=== PATIENT | male | born 1970 | race Two or more races ===

== ENCOUNTER 2024-08-10 06:39 | Inpatient (IN) | payer MEDICAID, SELFPAY ==
[2024-08-10] VITALS (11 sets, daily range): BP systolic 122–161; BP diastolic 78–98; PULSE 69–93; RESP 15–96; TEMP 36.4–36.9; O2SAT 95–99
--- NOTE | 2024-08-10 06:49 | XR_ITS ---
Examination: Abdomen sonogram, Limited Date and time of exam: August 10, 2024 0800 hours INDICATIONS: Epigastric pain nausea vomiting onset today Technique: Real-time rose scale transabdominal sonographic images of the upper abdomen obtained. Findings: Normal gallbladder Normal common bile duct 0.3 cm Pancreatic head 2.9 cm Liver 14.2 cm fatty infiltration smooth contour no focal liver lesions Normal hepatopedal portal venous flow Patent IVC IMPRESSION: Normal gallbladder Fatty liver
--- NOTE | 2024-08-10 06:50 | PD.EDRME ---
Rapid Medical Screening Exam [facility] Arrival date/time: 08/10/24 06:39 54-year-old male with no known medical history presents to the emergency room with a chief complaint of nausea, vomiting, 10 out of 10 epigastric pain that radiates to the right upper quadrant x 1 day. Patient also states he is having right ear pain x 3 days. Patient denies any fever, URI symptoms, diarrhea. I have greeted and performed a focused initial assessment of this patient. A comprehensive ED assessment and evaluation of the patient, analysis of all test results, and completion of the medical decision making process will be conducted by additional ED providers. Chief Complaint: Abdominal Pain Time Seen by Provider: 08/10/24 06:43 Vital signs: Vital Signs Temperature 97.5 F 08/10/24 06:48 Pulse Rate 76 08/10/24 06:48 Respiratory Rate 18 08/10/24 06:48 Blood Pressure 155/93 H 08/10/24 06:48 Pulse Oximetry (%) 98 08/10/24 06:48 Oxygen Delivery Method Room Air 08/10/24 06:48 Vital signs reviewed by provider: Yes
[2024-08-10 07:26] LABS: Alanine Aminotransferase 43 U/L (10-49); Albumin, Serum 4.6 gm/dL (3.5-5.0); Albumin/Globulin Ratio 1.6 (1.2-2.2); Alkaline Phosphatase 97 U/L (46-116); Anion Gap 9 (7-16); Aspartate Amino Transferase 38 U/L (0-34); BUN/Creatinine Ratio 13 Ratio (12-20); Bilirubin,Total 1.5 mg/dL (0.3-1.2); Blood Urea Nitrogen 13 mg/dL (9-23); Calcium 9.4 mg/dL (8.3-10.6); Calcium (Corrected) 9.4 mg/dL (8.5-10.1); Carbon Dioxide 23.8 mMol/L (20.0-31.0); Chloride 105 mMol/L (98-107); Globulin 2.8 gm/dL (2.3-3.5); Glucose 177 mg/dL (74-106); Lipase 38 U/L (12-53); Osmolality,Calculated 279 (275-295); Sodium 138 mMol/L (136-145); Total Protein 7.4 gm/dL (5.7-8.2); eGFR > 60 See Note
[2024-08-10 07:28] LABS: Collection Type, Urine Clean Catch; Squamous Epithelial Cell,Urine 0 /hpf (0-5)
[2024-08-10 07:31] LABS: Bilirubin,Urine Negative (Negative); Blood,Urine Negative (Negative); Clarity,Urine Clear (Clear/Hazy); Color,Urine Lt-Yellow (Lt Yel-Yel); Glucose, Urine Negative (Negative); Ketones,Urine Negative (Negative); Leukocyte Esterase,Urine Negative (Negative); Nitrite,Urine Negative (Negative); PH,Urine 6.5 (5.0-7.0); Protein,Urine Negative (Neg - Trace); RBC,Urine < 1 /hpf (0-3); Specific Gravity,Urine 1.016 (1.001-1.035); Urobilinogen,Urine Negative mg/dL (0.0-1.0); WBC,Urine < 1 /hpf (0-5)
[2024-08-10] MEDS: ONDANSETRON ODT 4 MG TABRAP PO (07:31)
[2024-08-10 07:58] LABS: Basophils % (Auto) 0 % (0-2.5); Eosinophils # (Auto) 0.1 Thou/mm3 (0.0-0.5); Eosinophils % (Auto) 1 % (0-10); Hematocrit 36.6 % (41.0-53.0); Hemoglobin 13.7 g/dL (13.5-16.0); Immature Granulocytes % (Auto) 1 % (0-0); Immature Granulocytes Auto 0.07 Thou/mm3 (0.00-0.00); Lymphocytes # (Auto) 3.4 Thou/mm3 (1.0-4.8); Lymphocytes % (Auto) 35 % (10-50); Mean Corpuscular HGB Conc 37.4 g/dl (31.0-37.0); Mean Corpuscular Hemoglobin 31.6 pg (25.0-35.0); Mean Corpuscular Volume 84 fL (80-100); Monocytes # (Auto) 0.6 Thou/mm3 (0.0-0.8); Monocytes % (Auto) 6 % (0-12); Neutrophils # (Auto) 5.5 Thou/mm3 (1.8-7.7); Neutrophils % (Auto) 57 % (37-80); Nucleated Red Blood Cell % 0 /100 WBC (0); Platelet Count 239 Thou/mm3 (140-440); RDW Standard Deviation 38.1 fL (35.1-43.9); Red Blood Count 4.34 Miln/mm3 (4.50-5.90); White Blood Count 9.7 Thou/mm3 (3.8-10.6)
--- NOTE | 2024-08-10 09:30 | PD.EDABDPN ---
ED Abdominal Pain RME/HPI General Chief Complaint: Abdominal Pain Stated complaint: N/V, ABD PAIN,RIGHT EAR PAIN Time seen by provider: 08/10/24 06:43 Arrival date/time: 08/10/24 06:39 RME / HPI RME / HPI narrative: 08/10/24 06:39 54-year-old male with no known medical history presents to the emergency room with a chief complaint of nausea, vomiting, 10 out of 10 epigastric pain that radiates to the right upper quadrant x 1 day. Patient also states he is having right ear pain x 3 days. Patient denies any fever, URI symptoms, diarrhea. I have greeted and performed a focused initial assessment of this patient. A comprehensive ED assessment and evaluation of the patient, analysis of all test results, and completion of the medical decision making process will be conducted by additional ED providers. --------- Main ED Evaluation: Patient is a 54-year-old Turkish-speaking male with past medical history of hyperlipidemia and depression who presented to the ED on 08/10/2024 due to epigastric pain radiating to the mid lower abdomen beginning around 5 am this morning with associated nausea and non-bloody vomiting. Patient describes the pain as pressure-like and intermittent lasting 2-3 minutes at a time, rated 9/10 at its worst and 7/10 at best, and worsened with sitting and standing positions. Patient denies any prior similar episodes, denies history of surgeries. He denies any diarrhea and reports last bowel movement was today while in ER and non-bloody. Denies any dysuria or flank pain. Patient also has a complaint of right ear fullness and pain which started yesterday with hearing sounds of air in the ear. He has mild associated generalized headache which started today. MD complaint: abdominal pain Onset (ago): hour(s) Consistency: colicky Location: epigastric Severity: severe Severity scale (1-10): 9 Quality: other (pressure-like) Radiation: LLQ and RLQ Migration to: no migration Relieving factors: rest and other (laying down) Exacerbating factors: movement and other (sitting and standing) Associated symptoms: nausea and vomiting Related Data Home Medications ?Medication ?Instructions ?Recorded ?Confirmed Ardosons 1 tab PO QDAY 08/13/22 08/13/22 Held on 08/13/22. Instructions: Resume on 08/14/22. MAY RESUME IN 24 HOURS Sleep & Stress Support 1 cap PO HS 08/13/22 08/13/22 Held on 08/13/22. Instructions: Resume on 08/14/22. MAY RESUME IN 24 HOURS acetaminophen 650 mg 650 mg PO Q8HR PRN Pain 08/13/22 08/13/22 tablet,extended release (Tylenol 8 Hour) Held on 08/13/22. Instructions: Resume on 08/14/22. MAY RESUME IN 24 HOURS calcium carbonate 1,000 mg PO DAILY 08/13/22 08/13/22 multivitamin with minerals 1 tab PO QDAY 08/13/22 08/13/22 omega-3 fatty acids 1,000 mg PO QDAY 08/13/22 08/13/22 vitamin E 400 unit tablet 180 mg PO QDAY 08/13/22 08/13/22 Previous Rx's ?Medication ?Instructions ?Recorded famotidine 40 mg tablet 40 mg PO QDAY #30 tabs 08/10/24 meclizine 25 mg tablet 25 mg PO BID PRN dizziness #20 tabs 08/10/24 omeprazole 40 mg capsule,delayed 40 mg PO QDAY #30 caps 08/10/24 release ondansetron 4 mg disintegrating 4 mg PO TID PRN nausea and 08/10/24 tablet vomiting 5 days #10 tabs scopolamine base 1 mg over 3 days 1 mg topical .72 hour PRN 08/10/24 transdermal patch dizziness or vertigo #4 ea Allergies Allergy/AdvReac Type Severity Reaction Status Date / Time ibuprofen Allergy Mild Hives Verified 08/10/24 06:40 Past Medical History Past Medical History Comments PMH COMMENT: Past Medical History: Hyperlipidemia, depression Family History: Noncontributory Surgical History: No previous surgery Social History: Denies history of smoking, denies current alcohol use, denies recreational drug use Current Medications: Statin, anti-depressant, vitamins (Source: Patient) Allergies: Ibuprofen - hives ED Exam Narrative Physical exam: Physical Exam General: Awake and in no acute distress. Conversational and non-toxic appearing. HEENT: Normocephalic, atraumatic, mucous membranes moist. Normal clear right tympanic membrane without bulging, erythema, purulence, or cerumen impaction. Same for left ear. Heart: Regular rate and rhythm, no murmurs. Lungs: Clear to auscultation with no wheezing or crackles. Abdomen: Soft, nondistended, mild tenderness to palpation mid-epigastric region, positive bowel sounds. ?No guarding or rebound tenderness. Neurologic: Alert and oriented x3, no gross neurological deficit, and patient able to move all 4 extremities. Extremities: No edema. Skin: No rash or ecchymoses. Course Quality Measures none Orders Category Date Time Status CT Screening NOW Care 08/10/24 09:[address] Screening NOW Care 08/10/24 13:22 Completed EKG (ED ONLY) *Do not use* NOW Care 08/10/24 06:[address] abdomen pelvis w con Stat Exams 08/10/24 13:[address] head/brain wo con Stat Exams 08/10/24 13:22 Completed CXR [XR chest 1V] Stat Exams 08/10/24 10:07 Completed EKG (ED Only) Stat Exams 08/10/24 06:50 Ordered US gall bladder Stat Exams 08/10/24 06:49 Completed A1C [Glycohemoglobin w (eAG)] Stat Lab 08/10/24 10:23 Completed Alcohol, Blood Medical Stat Lab 08/10/24 13:37 Completed CBC Stat Lab 08/10/24 07:00 Completed CMP [Comprehensive Metabolic Panel] Stat Lab 08/10/24 07:00 Completed Lactic Acid [Lactate (Lactic Acid)] Stat Lab 08/10/24 10:23 Completed Lipase Stat Lab 08/10/24 07:00 Completed Magnesium Stat Lab 08/10/24 10:23 Completed Troponin I Stat Lab 08/10/24 10:23 Completed Troponin I Stat Lab 08/10/24 13:37 Completed UA [Urinalysis] Stat Lab 08/10/24 07:02 Completed Urine Culture Stat Lab 08/10/24 07:16 Received Lidocaine 2% Viscous [Xylocaine 2% Viscous] Med 08/10/24 10:30 Discontinued 15 ml PO X1 ONE Meclizine HCl [Antivert] Med 08/10/24 16:33 Discontinued 25 mg PO X1 ONE Metoclopramide Inj [Reglan Inj] Med 08/10/24 15:06 Discontinued 5 mg IVP X1 ONE Morphine Inj Med 08/10/24 09:28 Discontinued 2 mg IVP X1 ONE Morphine Inj Med 08/10/24 10:59 Discontinued 2 mg IVP X1 ONE Morphine Inj Med 08/10/24 18:12 Discontinued 2 mg IVP X1 ONE Ondansetron Odt [Zofran Odt] Med 08/10/24 06:49 Discontinued 4 mg PO X1 ONE Potassium Chloride [K-Dur] Med 08/10/24 12:22 Discontinued 40 meq PO X1 ONE Ringers Lactated 1000 ml [Lactated Ringers] 1,000 ml Med 08/10/24 15:39 Discontinued IV 999 mls/hr Scopolamine [Transderm-Scop Patch] Med 08/10/24 18:11 Discontinued 1 mg TOP X1 ONE mg Hyd/Al Hyd/Gilma Susp [Maalox Susp] Med 08/10/24 10:30 Discontinued 30 ml PO X1 ONE Vital Signs Vital signs: Vital Signs Temperature 97.5 F 08/10/24 06:48 Pulse Rate 76 08/10/24 06:48 Respiratory Rate 18 08/10/24 06:48 Blood Pressure 155/93 H 08/10/24 06:48 Pulse Oximetry (%) 98 08/10/24 06:48 Oxygen Delivery Method Room Air 08/10/24 06:48 Procedures -ED Procedure Comment Pinky-Hallpike 16:40 Assessment with [place]-Hallpike testing done and significantly positive for right-beating rotary nystagmus when the patient's head is turned 45 degrees and positioned from sitting to laying quickly. Kodi Maneuver 17:00 Kodi maneuver was performed by Dr. Patel with translation assistance by [employer]ACH[employer]PA[employer]. Patient's head was turned 45 degrees. Patient was transitioned quickly from a sitting to laying position. He exhibited the same nystagmus as above. He was kept in this position for approximately 45 seconds, until the nystagmus stopped. Patient's head was then turned 90 degrees to the left while still in the laying position. The head was kept in this position another 30 seconds until nystagmus beats stopped. Patient then was turned another 90 degrees leftward, now facing down while also turning his body such that he was now laying on left lateral decubitus. Patient was finally sat in the upright position on the left hand side of the bed. Patient exhibited nausea throughout the exam, including at the end. Towards the end of the maneuver nausea was still present but in lesser degree. EKG Interpretation #1: Date of EK08/10/24 Time of EK:51 Rate: 77 Interpretation: Interpreted by me EKG Impression: Normal sinus rhythm, No acute ST-T changes, Normal intervals and Normal axis Additional EKG comment: Normal EKG Abdominal Pain [facility] Narrative [facility] Narrative:: Patient presents with colicky-sounding mid upper abdominal pain radiating to the lower mid-abdomen, severe in nature and pressure-like, causing nausea and vomiting with sudden onset early this morning. Differential diagnoses include but may not be limited to cholelithiasis, cholecystitis, choledocholithiasis, pancreatitis, small bowel obstruction, mesenteric ischemia, gastrointestinal tumor, peptic ulcer disease, gastritis, gastroparesis, volvulus, infectious colitis, ischemic colitis, ACS, gastroenteritis, abdominal aortic aneurysm, constipation, diverticulitis, diverticulosis, appendicitis. US of the gallbladder was done which showed normal gallbladder, normal bile duct without evidence of cholelithiasis. On labs the patient's WBC was normal, and the only abnormality on chemistry was slightly elevated total bilirubin of 1.5, low potassium of 3.0 (possibly secondary to vomiting), and elevated glucose of 177. Vitals signs reviewed indicate no fever, normal heart rate, and slightly elevated BP at 155/93 likely secondary to pain. Will follow up with additional studies: CT angio of the abdomen/pelvis to evaluate for any of the above differentials including possible ischemic causes given the history of hyperlipidemia and nature of the patient's pain. CXR to evaluate for any underlying thoracic pathology. Troponin to rule out ACS. Lactic acid to evaluate for any ischemia. A1c due to elevated blood glucose of 177 on chemistry and no reported history of diabetes. On chem panel, anion gap is normal. After review of completed studies, patient was reassessed and it was found that patient was acutely symptomatic with dizziness, nausea, and vomiting on positional changes. Therefore Pinky-Hallpike was performed and remarkably positive. Kodi maneuver was performed on the patient. He was treated with meclizine and IV fluids. Patient is pending clinical improvement. 18:00 Care of the patient signed out to the oncoming provider, Dr. Cox. Dispo is pending clinical improvment. Patient data External records reviewed:: [facility] previous records Clinical information provided by:: patient Social determinants that could affect healthcare access:: none Patient has the following chronic illnesses:: As above How is presenting disease/condition affected by chronic disease/condition?: uneffected by Evaluation data The following diagnostics were reviewed and interpreted by me:: lab results, radiology exam(s) and EKG tracing(s) Lab and/or radiology exams considered but not ordered:: Ordered Interpretation Summary: US gall bladder Findings: Normal gallbladder Normal common bile duct 0.3 cm Pancreatic head 2.9 cm Liver 14.2 cm fatty infiltration smooth contour no focal liver lesions Normal hepatopedal portal venous flow Patent IVC IMPRESSION: Normal gallbladder Fatty liver Chest X-Ray FINDINGS: Normal heart size Lungs are clear. The osseous structures are intact IMPRESSION: No active disease CT abdomen with intravenous contrast Findings: No focal liver or splenic lesions Contrast in the stomach Contracted gallbladder No pancreatic or adrenal mass No renal or ureteral calculi, no hydronephrosis Aorta normal size Normal appendix No bowel obstruction Mild diffuse wall thickening and hyperemia involving the colon Mildly prominent seminal vesicles Transverse prostate dimension 4.6 cm Urinary bladder wall thickening up to 3 mm Moderate degenerative disc disease L4-L5, L5-S1 IMPRESSION: Mild diffuse nonspecific colitis pattern Normal appendix Moderate prostatomegaly Mild cystitis pattern CT head without contrast Findings: No significant ventricular enlargement. Fat density adjacent to the quadrigeminal cistern Intra-axial or extra-axial hemorrhage density is not seen. No mass effect or midline shift Basal cisterns are not remarkable. Fourth ventricle is midline. Cranial vault intact. Impression: Negative for acute hemorrhage, mass effect or midline shift Advise clinical correlation follow-up accordingly Medications / Prescriptions Medications or Prescriptions considered but not ordered:: Given Medication administrations:: Medication Administration History Discontinued Medications Al Hydrox/Mg Hydrox/Simethicone (Mg Hyd/Al Hyd/Gilma (Maalox Reg) Susp 30 Ml Udc) 30 ml PO X1 ONE Stop: 08/10/24 10:31 Last Admin: 08/10/24 11:39 Dose: 30 ml Documented By: RIVER Lactated Ringer's (Lactated Ringers) 1,000 mls @ 999 mls/hr IV .Q1H1M ONE Stop: 08/10/24 16:39 Last Infusion: 08/10/24 18:00 Dose: Infused Documented By: Admin: 08/10/24 16:54 Dose: 999 mls/hr Documented By: RIVER Lidocaine HCl (Lidocaine Viscous 2% 15 Ml Udc) 15 ml PO X1 ONE Stop: 08/10/24 10:31 Last Admin: 08/10/24 11:39 Dose: 15 ml Documented By: RIVER Meclizine HCl (Meclizine Hcl 25 Mg Tablet) 25 mg PO X1 ONE Stop: 08/10/24 16:34 Last Admin: 08/10/24 16:53 Dose: 25 mg Documented By: RIVER Metoclopramide HCl (Metoclopramide Inj 5 Mg/Ml Vial 2 Ml) 5 mg IVP X1 ONE; Protocol Stop: 08/10/24 15:07 Last Admin: 08/10/24 16:56 Dose: 5 mg Documented By: RIVER Morphine Sulfate (Morphine Sulf Inj 10 Mg/Ml Vial) 2 mg IVP X1 ONE Stop: 08/10/24 09:29 Last Admin: 08/10/24 10:08 Dose: 2 mg Documented By: RIVER Morphine Sulfate (Morphine Sulf Inj 10 Mg/Ml Vial) 2 mg IVP X1 ONE Stop: 08/10/24 11:00 Last Admin: 08/10/24 11:39 Dose: 2 mg Documented By: RIVER Morphine Sulfate (Morphine Sulf Inj 10 Mg/Ml Vial) 2 mg IVP X1 ONE Stop: 08/10/24 18:13 Last Admin: 08/10/24 18:17 Dose: 2 mg Documented By: GLORIA Ondansetron HCl (Ondansetron Odt 4 Mg Tabrap) 4 mg PO X1 ONE; Protocol Stop: 08/10/24 06:50 Last Admin: 08/10/24 07:31 Dose: 4 mg Documented By: ABIMAEL Potassium Chloride (Potassium Chloride 20 Meq Tabcr) 40 meq PO X1 ONE Stop: 08/10/24 12:23 Last Admin: 08/10/24 14:00 Dose: 40 meq Documented By: RIVER Scopolamine (Scopolamine 1 Mg Tdsy) 1 mg TOP X1 ONE Stop: 08/10/24 18:12 Last Admin: 08/10/24 18:18 Dose: 1 mg Documented By: SF Given Consultations Consultation(s) initiated? (list below): No Diagnosis Differential diagnosis abdominal pain: abdominal pain, acute appendicitis, calculus of kidney, constipation, diverticulitis, gastroenteritis, pancreatitis and small bowel obstruction Most likely diagnosis given after review of the tests above:: Benign positional vertigo Admission Indicated Admission indicated?: not indicated Admission Request Was there a request for admission?: No Disposition Plan Disposition Plan: Discharge Discharge Attestation Discharge Attestation: The patient and all family members were given an opportunity to ask questions and understood the discharge instructions. Discharge instructions specifically effects, indications for sooner follow up or return to the emergency department, and the expected course of current diagnosis. Patient condition: Stable Discharge Plan Plan Patient Disposition: HOME (Self Care) Prescriptions/Referrals Prescriptions/Med Rec: New famotidine 40 mg tablet 40 mg PO QDAY Qty: 30 0RF omeprazole 40 mg capsule,delayed release(DR/EC) 40 mg PO QDAY Qty: 30 0RF meclizine 25 mg tablet 25 mg PO BID PRN (Reason: dizziness) Qty: 20 0RF scopolamine base 1 mg over 3 days patch 3 day 1 mg topical .72 hour PRN (Reason: dizziness or vertigo) Qty: 4 0RF ondansetron 4 mg tablet,disintegrating 4 mg PO TID PRN (Reason: nausea and vomiting) 5 Days Qty: 10 0RF No Action acetaminophen [Tylenol 8 Hour] 650 mg Tablet Extended Release 650 mg PO Q8HR PRN (Reason: Pain) vitamin E 400 unit Tablet 180 mg PO QDAY omega-3 fatty acids Capsule 1,000 mg PO QDAY calcium carbonate 390 mg calcium (1,000 mg) Tablet 1,000 mg PO DAILY Ardosons 1 tab PO QDAY Sleep & Stress Support 1 cap PO HS multivitamin with minerals Tablet 1 tab PO QDAY Referrals: No Primary/Family,Physician [Primary Care Provider] - In 1 week Problem List Clinical Impression: Benign paroxysmal positional vertigo Patient/Caregiver Discharge Instructions Print Language: Turkish Stand Alone Forms: [facility] Award Info., Patient Portal Info Letter
--- NOTE | 2024-08-10 10:07 | XR_ITS ---
Examination: AP chest single view TECHNIQUE: AP portable upright chest single view Exam date and time: June 09, 2025 1011 hours INDICATIONS: Epigastric pain today. FINDINGS: Normal heart size Lungs are clear. The osseous structures are intact IMPRESSION: No active disease
[2024-08-10] MEDS: MORPHINE SULF INJ 10 MG/ML VIAL 2 MG IVP ×3 (10:08→18:17)
[2024-08-10 10:35] LABS: Lactate (Lactic Acid) 1.7 mMol/L (0.4-2.0)
[2024-08-10 10:47] LABS: Glucose Estimated Average 103 mg/dL (80-131); Hemoglobin A1C 5.2 % Hgb (4.8-6.0)
[2024-08-10 10:51] LABS: Troponin I < 0.002 ng/mL (0.0-0.045)
[2024-08-10] MEDS: MG HYD/AL HYD/SIME (Maalox Reg) SUSP 30 ML UDC PO (11:39)
[2024-08-10] MEDS: LIDOCAINE VISCOUS 2% 15 ML UDC PO (11:39)
--- NOTE | 2024-08-10 13:22 | XR_ITS ---
Examination: CT abdomen with intravenous contrast CT pelvis with intravenous contrast 2-D coronal reconstructions 2-D sagittal reconstructions Date and time of exam:August 10, 2024 1430 hours INDICATIONS: Epigastric pain nausea vomiting today. CTDI: vol (mGy) 14 DLP: (mGycm) 851 Technique: Multiple axial sections of the abdomen and pelvis have been obtained. 64 slice high-resolution scanner used. 3 mm axial sections have been obtained, post intravenous injection 60 cc [id number]. 2-D sagittal, coronal reconstructions obtained. Low dose protocols were performed. One or more of the following dose reduction techniques were used; automated exposure control, adjustment of the mA and/or KV according to patient size, use of iterative reconstruction technique. Findings: No focal liver or splenic lesions Contrast in the stomach Contracted gallbladder No pancreatic or adrenal mass No renal or ureteral calculi, no hydronephrosis Aorta normal size Normal appendix No bowel obstruction Mild diffuse wall thickening and hyperemia involving the colon Mildly prominent seminal vesicles Transverse prostate dimension 4.6 cm Urinary bladder wall thickening up to 3 mm Moderate degenerative disc disease L4-L5, L5-S1 IMPRESSION: Mild diffuse nonspecific colitis pattern Normal appendix Moderate prostatomegaly Mild cystitis pattern
--- NOTE | 2024-08-10 13:22 | XR_ITS ---
Examination: CT brain head without contrast. 2-D sagittal coronal reconstructions Date and time of exam:August 10, 2024 1425 hours INDICATIONS: Onset dizziness episodes today CTDI: vol (mGy):50.6 DLP: (mGycm):1029 Technique: Multiple CT axial sections of the brain have been obtained, 5 mm slice thickness. Contrast has not been administered. 2-D sagittal, coronal reconstructions have been obtained Low dose protocols were performed. One or more of the following dose reduction techniques were used; automated exposure control, adjustment of the mA and/or KV according to patient size, use of iterative reconstruction technique. Findings: No significant ventricular enlargement. Fat density adjacent to the quadrigeminal cistern Intra-axial or extra-axial hemorrhage density is not seen. No mass effect or midline shift Basal cisterns are not remarkable. Fourth ventricle is midline. Cranial vault intact. Impression: Negative for acute hemorrhage, mass effect or midline shift Advise clinical correlation follow-up accordingly
[2024-08-10] MEDS: POTASSIUM CHLORIDE 20 mEq TABCR 40 MEQ PO (14:00)
[2024-08-10 14:21] LABS: Troponin I < 0.002 ng/mL (0.0-0.045)
[2024-08-10] MEDS: MECLIZINE HCL 25 MG TABLET PO (16:53)
[2024-08-10] MEDS: RINGERS LACTATED 1000 ML 1,000 ML 999 ML IV (16:54)
[2024-08-10] MEDS: METOCLOPRAMIDE INJ 5 MG/ML VIAL 2 ML IVP (16:56)
[2024-08-10 17:01] LABS: Magnesium 1.8 mg/dL (1.6-2.6)
[2024-08-10 17:54] LABS: Alcohol, Blood Medical < 3.0 mg/dL (0-10.0)
--- NOTE | 2024-08-10 17:58 | EDNOTE_ITS ---
Emergency Room Addendum <Esha Hurst - Last Filed: 08/10/24 19:01> Addendum Narrative: I took over the care from Dr. Patel (attending Dr. Garcia) at 6 PM on 08/10/2024, see her notes for complete H&P and ED course. I reviewed all diagnostic test results. My interpretation of the chest x-ray is My review of the CT report is Blood tests and urine tests At this point, diagnoses include Treatment here included Significant improvement Based on my best medical judgment, made decision no further evaluation or treatment indicated at this time. Patient understands and agrees to the discharge instructions customized and printed, see below. Discharge instructions from Dr. Cox: -- Your severe symptoms of dizziness and vomiting are due to vertigo.? See attached handout. -- Use scopolamine patch and/or meclizine for your severe symptoms. -- And Zofran for nausea/vomiting.? And increase oral fluid to prevent dehydration.? Maintain clear urine.? If dark or yellow, increase oral fluid. -- And do everything very slowly.? Including moving your head.? And when you sit up or stand up, wait a minute before you progress.? -- For your stomach ulcer, take omeprazole every morning for a week and famotidine every night for a week then as needed. -- See your private doctor on 08/12/2024 for recheck and further care. To make sure there is no serious intra-abdominal condition, ask for help with more investigation not available here in the ER. Such as EGD or scoping the stomach, colonoscopy or scoping the colon, and referral to see department of mathematics chair. For your severe dizziness, ask for help with MRI imaging of your brain, physical therapy, table tilt test, and referrals to see specialists (such as neurologist and ENT specialist). Ask to review all test results and official radiology reports, to make sure you receive all necessary follow-ups and monitoring. -- Seek immediate medical care with worsening or with any concerns. <Robert Cox MD - Last Filed: 08/10/24 19:03> Addendum Narrative: I took over the care from Dr. Patel (attending Dr. Garcia) at 6 PM on 08/10/2024, see her notes for complete H&P and ED course. I reviewed all diagnostic test results. At this point, diagnoses include vertigo and gastritis. Significant improvement after treatment here. Recommended supportive care and more outpatient workup. Based on my best medical judgment, made decision no further evaluation or treatment indicated at this time. Patient understands and agrees to the discharge instructions customized and printed, see below. Discharge instructions from Dr. Cox: -- Your severe symptoms of dizziness and vomiting are due to vertigo.? See attached handout. -- Use scopolamine patch and/or meclizine for your severe symptoms. -- And Zofran for nausea/vomiting.? And increase oral fluid to prevent dehydration.? Maintain clear urine.? If dark or yellow, increase oral fluid. -- And do everything very slowly.? Including moving your head.? And when you sit up or stand up, wait a minute before you progress.? -- For your stomach ulcer, take omeprazole every morning for a week and famotidine every night for a week then as needed. -- See your private doctor on 08/12/2024 for recheck and further care. To make sure there is no serious intra-abdominal condition, ask for help with more investigation not available here in the ER. Such as EGD or scoping the stomach, colonoscopy or scoping the colon, and referral to see department of mathematics chair. For your severe dizziness, ask for help with MRI imaging of your brain, physical therapy, table tilt test, and referrals to see specialists (such as neurologist and ENT specialist). Ask to review all test results and official radiology reports, to make sure you receive all necessary follow-ups and monitoring. -- Seek immediate medical care with worsening or with any concerns.
[2024-08-10] MEDS: SCOPOLAMINE 1 MG TDSY TOP (18:18)
--- NOTE | 2024-08-10 20:44 | XR_ITS ---
Examination: CTA carotids with intravenous contrast CTA brain, head with intravenous contrast. 2-D sagittal, coronal reconstructions. 3-D reconstructions. Exam: July and time: August 10, 2024 2108 hrs. Indications: Nausea vomiting and ataxia dizziness today CTDI: vol (mGy) 10.9 DLP: (mGycm) 408 Technique: Multiple CTA axial brain, head carotid images post intravenous contrast injection 75 cc, [id number]. 2-D sagittal, coronal reconstructions. 3-D reconstructions, 3-D post processing including vascular maximum intensity projection images. Low dose protocols were performed. One or more of the following dose reduction techniques were used; automated exposure control, adjustment of the mA and/or KV according to patient size, use of iterative reconstruction technique. Findings: No common carotid carotid bifurcation or internal carotid artery significant stenoses Codominant vertebral arteries with no critical stenoses No cerebral large vessel arterial occlusions, thrombus, dissection or cerebral aneurysm Impression: No significant neck arterial stenoses No cerebral large vessel arterial occlusions, thrombus, dissection or cerebral aneurysm Consider brain MRI MRA without contrast, stroke protocol, follow-up
--- NOTE | 2024-08-10 20:57 | XR_ITS ---
Examination: CT brain head without contrast. 2-D sagittal coronal reconstructions Date and time of exam:August 10, 2024 at 2106 hrs. Indications: Head pain year pain dizziness today CTDI: vol (mGy):48.9 DLP: (mGycm):970 Technique: Multiple CT axial sections of the brain have been obtained, 5 mm slice thickness. Contrast has not been administered. 2-D sagittal, coronal reconstructions have been obtained Low dose protocols were performed. One or more of the following dose reduction techniques were used; automated exposure control, adjustment of the mA and/or KV according to patient size, use of iterative reconstruction technique. Findings: No significant ventricular enlargement. Intra-axial or extra-axial hemorrhage density is not seen. No mass effect or midline shift Basal cisterns are not remarkable. Fourth ventricle is midline. Cranial vault intact. Impression: Negative for acute hemorrhage, mass effect or midline shift If symptoms persist, consider elective brain MRI follow-up
--- NOTE | 2024-08-10 21:00 | PC.NURSE ---
[facility] CASE # [id number]
[2024-08-10 21:20] LABS: INR 1.1 (0.9-1.3); Partial Thromboplastin Time 26.1 Seconds (22.0-36.0); Prothrombin Time 11.8 Seconds (9.0-12.2)
--- NOTE | 2024-08-10 21:50 | ESCONSULT_ITS ---
Tele Neuro Consultation Consultation Date 08/10/24 Most Recent Vital Signs Last Vital Signs Temp 907.6 F H 08/10/24 20:00 Pulse 93 08/10/24 20:00 Resp 18 08/10/24 20:00 BP 156/89 H 08/10/24 20:00 Pulse Ox 98 08/10/24 20:00 O2 Del Method Room Air 08/10/24 20:00 Laboratory-Coagulation Panel PT 11.8 Seconds (9.0-12.2) 08/10/24 20:54 INR 1.1 (0.9-1.3) 08/10/24 20:54 APTT 26.1 Seconds (22.0-36.0) 08/10/24 20:54 Consultation Narrative [facility] Patient Name:???Abel Dutton Date of :???1970 Identification Number:??? Date of Service:???08/10/2024 20:59:43 Diagnosis: ?R42 - Dizziness/ Vertigo/ Giddiness ?R26.81 - Unsteady gait Impression: ?54 yo M who presented for evaluation of positional vertigo with associated nausea/vomiting and unsteady gait. His neurologic exam was notable for right facial hypoesthesia and unsteady gait but otherwise grossly non-focal. Overall, his presentation is most concerning for a peripheral vertigo (particularly given concurrent right ear discomfort/tinnitus), though presence of possible right facial sensory changes does increase suspicion for possible acute stroke. He is not a candidate for thrombolytics as LKW >4.5 hours, and there is no evidence of proximal LVO on my review of the vessel imaging. Recommend empiric initiation of ASA and MRI brain without contrast for further evaluation. Our recommendations are outlined below. Recommendations: ?Please load with ASA 325 mg followed by 81 mg daily thereafter pending review of MRI ?May give meclizine and antiemetics PRN for symptomatic improvement; if symptoms remain refractory/intolerable, may also trial low-dose benzodiazepine for additional relief ?MRI brain without contrast to evaluate for acute stroke ?If MRI brain is positive for acute stroke, will recommend completion of stroke workup (including TTE, telemetry, stroke labs) ?If MRI brain is negative for acute stroke, no further neurologic studies will be necessary ?Patient would otherwise benefit from PT evaluation for vestibular rehab if dizziness persists Sign Out: ? Discussed with Emergency Department Provider Advanced Imaging: CTA Head and Neck Completed. LVO:No Patient in not a candidate for MARY Metrics: Last Known Well: 08/09/2024 23:00:00 Dispatch Time: 08/10/2024 20:59:43 Arrival Time: 08/10/2024 06:39:00 Initial Response Time: 08/10/2024 21:07:27Symptoms: dizziness and unsteady gait. Initial patient interaction: 08/10/2024 21:20:09 NIHSS Assessment Completed: 08/10/2024 21:28:19Patient is not a candidate for Thrombolytic. Thrombolytic Medical Decision: 08/10/2024 21:28:22Patient was not deemed candidate for Thrombolytic because of following reasons: LKW outside 4.5 hr window. . I personally Reviewed the CT Head and it Showed no acute process Primary Provider Notified of Diagnostic Impression and Management Plan on: 08/10/2024 21:47:15 History of Present Illness:Patient is a 54 year old Male. Patient was brought by private transportation with symptoms of dizziness and unsteady gait. Patient reports that he was last known normal around 11 PM on 2/11 prior to going to bed. He awoke around 5:30 AM on the morning of 08/10 and reported acute onset of dizziness (described as a spinning sensation) with associated nausea/vomiting and unsteady gait. He also reported mild abdominal discomfort as well as blurry vision in both eyes. The dizziness is worse while ambulating. While in the ED, he also started to complain of right ear pain with associated tinnitus. He denied any history of similar symptoms in the past and further denied any associated headache, speech changes, or focal numbness/weakness. Though he was initially going to be discharged, his gait was noted to be unsteady in the ED, prompting a stroke alert. Past Medical History: ?Hyperlipidemia ?There is no history of Stroke Medications: No Anticoagulant use? No Antiplatelet use Reviewed EMR for current medications Allergies:? Reviewed Description:?ibuprofen Social History: Smoking: No Family History: There is no family history of premature cerebrovascular disease pertinent to this consultation ROS : 14 Points Review of Systems was performed and was negative except mentioned in HPI. Past Surgical History: There Is No Surgical History Contributory To Today?s Visit Examination: BP(156/89),?Pulse(93), 1A: Level of Consciousness - Alert; keenly responsive?+ 0 1B: Ask Month and Age - Both Questions Right?+ 0 1C: Blink Eyes & Squeeze Hands - Performs Both Tasks?+ 0 2: Test Horizontal Extraocular Movements - Normal?+ 0 3: Test Visual Dickson - No Visual Loss?+ 0 4: Test Facial Palsy (Use Grimace if Obtunded) - Normal symmetry?+ 0 5A: Test Left Arm Motor Drift - No Drift for 10 Seconds?+ 0 5B: Test Right Arm Motor Drift - No Drift for 10 Seconds?+ 0 6A: Test Left Leg Motor Drift - No Drift for 5 Seconds?+ 0 6B: Test Right Leg Motor Drift - No Drift for 5 Seconds?+ 0 7: Test Limb Ataxia (FNF/Heel-Landry) - No Ataxia?+ 0 8: Test Sensation - Mild-Moderate Loss: Less Sharp/More Dull?+ 1 9: Test Language/Aphasia - Normal; No aphasia?+ 0 10: Test Dysarthria - Normal?+ 0 11: Test Extinction/Inattention - No abnormality?+ 0 NIHSS Score:?1 NIHSS Free Text :?Right facial hypoesthesia; unsteady gait per ED staff Pre-Morbid Modified Holbrook Scale:0 Points = No symptoms at all Spoke with :?Dr. Cox This consult was conducted in real time using interactive audio and video technology. Patient was informed of the technology being used for this visit and agreed to proceed. Patient located in hospital and provider located at home/office setting. Patient is being evaluated for possible acute neurologic impairment and high probability of imminent or life-threatening deterioration. I spent total of 35 minutes providing care to this patient, including time for face to face visit via telemedicine, review of medical records, imaging studies and discussion of findings with providers, the patient and/or family. Dr Humberto Godwin [facility] For Inpatient follow-up with [facility] physician please call [facility] at . As we are not an outpatient service for any post hospital discharge needs please contact the hospital for assistance. If you have any questions for the [facility] physicians or need to reconsult for clinical or diagnostic changes please contact us via [facility] at .
--- NOTE | 2024-08-10 21:54 | PD.EDADDENDU ---
Emergency Room Addendum <Esha Hurst - Last Filed: 08/10/24 21:57> Addendum Narrative: As the patient was about to be discharged, the nurses observed him to have difficulty with his balance. Stroke alert was called overhead at 2143: Discussed case with [Dr. Godwin] from [facility] regarding consultation. Discussed patients ED course, exam findings, labs, and radiology results. Recommends MRI in the morning. I discussed the case with our hospitalist. About the presentation and exam and diagnostics and treatments here. And need of further care in the hospital. Will accept the patient. <Robert Cox MD - Last Filed: 08/10/24 21:58> Addendum Narrative: As the patient was about to be discharged, the nurses observed him to have difficulty with his balance. Stroke alert was called overhead at 2143: Discussed case with [Dr. Godwin] from [facility] regarding consultation. Discussed patients ED course, exam findings, labs, and radiology results. Recommends admission for further workup, including MRI. Gastroenteritis 25 mg given. I discussed the case with our hospitalist. About the presentation and exam and diagnostics and treatments here. And need of further care in the hospital. Will accept the patient. Robert Cox MD
[2024-08-10] MEDS: METOCLOPRAMIDE INJ 5 MG/ML VIAL 2 ML 10 MG IVP (22:23)
[2024-08-10] MEDS: ONDANSETRON INJ 2 MG/ML INJ 2 ML 4 MG IV (22:23)
[2024-08-10] MEDS: Aspirin 325 MG TABLET PO (22:23)
[2024-08-10] MEDS: ACETAMINOPHEN w/COD 300-30 TABLET 2 TAB PO (22:23)
[2024-08-10] MEDS: SODIUM CHLORIDE 0.9% 1000 ML 1,000 ML 100 ML IV (22:24)
--- NOTE | 2024-08-10 22:51 | ESHP_ITS ---
Documentation for date of: 08/10/24 HPI History of Present Illness Chief complaint: Dizziness, nausea vomiting and ear pain History of present illness: Mr. Dutton is a 54-year-old male with past medical history of hyperlipidemia and depression who presented to [facility] emergency department on 08/10/2024 with a chief complaint of dizziness, nausea and unsteady gait. 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 Patient reported no prior history of similar episodes, presented to the ED for further evaluation. Patient complained of pressure-like abdominal pain intermittent lasting for 2 to 3 minutes at a time 9/10 in intensity, patient attributes his symptoms to his dizziness and right ear pain which started in the morning as well. On evaluation in ED patient was noted to have unsteady gait. Stroke alert called in the ED. ED Course: ED Vitals: On presentation BP 155/93, P 76, RR 18, temp 97.5, O2 sat 98 on room air ED Labs:On presentation RBC 4.34, hematocrit 36.6, MCHC 37.4, potassium 3.0, glucose 177, T. bili 1.5, AST 38 ED Imaging: Gallbladder ultrasound in ED shows normal gallbladder fatty liver, chest x-ray shows no active disease, CT abdomen pelvis shows mild nonspecific colitis, moderate prostatomegaly and mild cystitis head CT negative CTA head and neck negative repeat CT head negative ED Treatment: Patient was given Zofran 4mg X2, Morphine 2mg X3, Maalox X1, PO Lidocaine x1, Potassium 40mEq x1, Reglan 10mg x 1, Reglan 5 mg x 1, Meclizine PO x1, Scopolamine X1 and Acetaminophen-Codiene 2 tabs x1, Aspirin 325 x1 in ED. Review of Systems Review of Systems Narrative Review of Systems: ROS: -CONSTITUTIONAL: Denies weight loss, fever and chills. -HEENT: Denies changes in vision. Reports decreased hearing in right ear, complains of ear pain. -RESPIRATORY: Denies SOB and cough. -CV: Denies palpitations and Chest Pain. -GI: Positive for abdominal pain, nausea, vomiting, denies constipation and diarrhea. -: Denies dysuria and urinary frequency. -MSK: Denies myalgia and joint pain. -SKIN: Denies rash and pruritus. -NEUROLOGICAL: Denies headache and syncope. Positive for unsteady gait. Positive for dizziness -PSYCHIATRIC: Denies recent changes in mood. Denies anxiety and depression. Past Medical History Past Medical History Comments PMH COMMENT: PMH: Positive for atorvastatin and duloxetine PSHx: Denies Allergies: Ibuprofen?hives Social history: -Smoking: Denies -Alcohol Use: Denies -Illicit Drug Use: Denies -Occupation: Currently unemployed -Martial Status: Family History: Denies any pertinent family history Exam Vital Signs Temp Pulse Resp BP Pulse Ox O2 Del Method 98.4 F 76 18 144/86 H 95 Room Air 08/10/24 22:33 08/10/24 22:50 08/10/24 22:50 08/10/24 22:33 08/10/24 22:33 08/10/24 22:33 Narrative Exam Physical Exam General: Awake and in no acute distress. Conversational and non-toxic appearing. Complaining of active nausea, dry heaving. HEENT: Normocephalic, atraumatic, mucous membranes moist. Heart: Regular rate and rhythm, no murmurs. Lungs: Clear to auscultation with no wheezing or crackles. Abdomen: Soft, nondistended, mildly tender in all quadrants, positive bowel sounds. ?No guarding or rebound tenderness. Neurologic: Alert and oriented x3, no gross neurological deficit, and patient able to move all 4 extremities, strength intact in all 4 extremities. Extremities: No edema. Skin: No rash or ecchymoses. Results: Labs 08/11/24 04:31 08/11/24 04:31 Labs: Short CBC 08/10/24 Range/Units 07:00 WBC 9.7 (3.8-10.6) Thou/mm3 Hgb 13.7 (13.5-16.0) g/dL Hct 36.6 L (41.0-53.0) % Plt Count 239 (140-440) Thou/mm3 BMP 08/10/24 07:00 Sodium 138 Potassium 3.0 L Chloride 105 Carbon Dioxide 23.8 BUN 13 Creatinine 1.0 Glucose 177 H Calcium 9.4 Cardiac Enzymes 08/10/24 08/10/24 Range/Units 10:23 13:37 Troponin I < 0.002 < 0.002 (0.0-0.045) ng/mL Liver Function 08/10/24 Range/Units 07:00 Total Bilirubin 1.5 H (0.3-1.2) mg/dL AST 38 H (0-34) U/L ALT 43 (10-49) U/L Alkaline Phosphatase 97 (46-116) U/L Albumin 4.6 (3.5-5.0) gm/dL Urine 08/10/24 Range/Units 07:02 Urine Color Lt-Yellow (Lt Yel-Yel) Urine Clarity Clear (Clear/Hazy) Urine pH 6.5 (5.0-7.0) Ur Specific [place] 1.016 (1.001-1.035) Urine Protein Negative (Neg - Trace) Urine Glucose (UA) Negative (Negative) Quality Measures Quality Measures none Medications Home Medications and Allergies Home Medications ?Medication ?Instructions ?Recorded ?Confirmed ?Type Ardosons 1 tab PO QDAY 08/13/2208/13 History Held on 08/13/22. Instructions: Resume on 08/14/22. MAY RESUME IN 24 HOURS Sleep & Stress Support 1 cap PO HS 08/13/22 3 History Held on 08/13/22. Instructions: Resume on 08/14/22. MAY RESUME IN 24 HOURS acetaminophen 650 mg 650 mg PO Q8HR PRN Pain 07/3008/13/22 History tablet,extended release (Tylenol 8 Hour) Held on 08/13/22. Instructions: Resume on 08/14/22. MAY RESUME IN 24 HOURS calcium carbonate 1,000 mg PO DAILY 08/13/22 0 08/13/22 History multivitamin with minerals 1 tab PO QDAY 08/13/2207/30 History omega-3 fatty acids 1,000 mg PO QDAY 08/13/22 History vitamin E 400 unit tablet 180 mg PO QDAY 08/13/2207/30 History Allergies Allergy/AdvReac Type Severity Reaction Status Date / Time ibuprofen Allergy Mild Hives Verified 08/10/24 06:40 Visit Medications Acetaminophen (Acetaminophen 325 Mg Tablet) 650 mg PO Q6H PRN PRN Reason: Mild Pain (1-3 & Fever >101.5 Stop: 09/09/24 22:25 Al Hydrox/Mg Hydrox/Simethicone (Mg Hyd/Al Hyd/Gilma (Maalox Reg) Susp 30 Ml Udc) 30 ml PO Q6H PRN PRN Reason: Indigestion Stop: 09/09/24 22:25 Aspirin (Aspirin Ec 81 Mg Tabec) 81 mg PO QDAY REPLACED BY [facility] Stop: 09/10/24 08:59 Atorvastatin Calcium (Atorvastatin Calcium 20 Mg Tablet) 40 mg PO HS LINDSAY Stop: 09/10/24 20:59 Heparin Sodium (Porcine) (Heparin Sod Inj 5000 Unit/Ml Vial) 5,000 unit SC Q12H LINDSAY Stop: 08/25/24 08:59 Sodium Chloride (Ns) 1,000 mls @ 100 mls/hr IV Q10H LINDSAY Stop: 09/09/24 20:44 Last Admin: 08/10/24 22:24 Dose: 100 mls/hr Lactated Ringer's (Lactated Ringers) 1,000 mls @ 75 mls/hr IV .[id number] REPLACED BY [facility] Stop: 08/11/24 11:49 Pantoprazole Sodium (Pantoprazole Inj 40 Mg Vial) 40 mg IVP QDAY REPLACED BY [facility] Stop: 09/10/24 08:59 Sennosides (Senna Tablet) 1 tab PO QDAY PRN; Protocol PRN Reason: constipation Stop: 09/09/24 22:25 Discontinued Medications Acetaminophen/Codeine Phosphate (Acetaminophen W/Cod 300-30 Tablet) 2 tab PO X1 ONE Stop: 08/10/24 20:32 Last Admin: 08/10/24 22:23 Dose: 2 tab Al Hydrox/Mg Hydrox/Simethicone (Mg Hyd/Al Hyd/Gilma (Maalox Reg) Susp 30 Ml Udc) 30 ml PO X1 ONE Stop: 08/10/24 10:31 Last Admin: 08/10/24 11:39 Dose: 30 ml Aspirin (Aspirin 325 Mg Tablet) 325 mg PO X1 ONE Stop: 08/10/24 21:46 Last Admin: 08/10/24 22:23 Dose: 325 mg Lactated Ringer's (Lactated Ringers) 1,000 mls @ 999 mls/hr IV .Q1H1M ONE Stop: 08/10/24 16:39 Last Infusion: 08/10/24 18:00 Dose: Infused Lidocaine HCl (Lidocaine Viscous 2% 15 Ml Udc) 15 ml PO X1 ONE Stop: 08/10/24 10:31 Last Admin: 08/10/24 11:39 Dose: 15 ml Meclizine HCl (Meclizine Hcl 25 Mg Tablet) 25 mg PO X1 ONE Stop: 08/10/24 16:34 Last Admin: 08/10/24 16:53 Dose: 25 mg Metoclopramide HCl (Metoclopramide Inj 5 Mg/Ml Vial 2 Ml) 5 mg IVP X1 ONE; Protocol Stop: 08/10/24 15:07 Last Admin: 08/10/24 16:56 Dose: 5 mg Metoclopramide HCl (Metoclopramide Inj 5 Mg/Ml Vial 2 Ml) 10 mg IVP X1 ONE; Protocol Stop: 08/10/24 20:32 Last Admin: 08/10/24 22:23 Dose: 10 mg Morphine Sulfate (Morphine Sulf Inj 10 Mg/Ml Vial) 2 mg IVP X1 ONE Stop: 08/10/24 09:29 Last Admin: 08/10/24 10:08 Dose: 2 mg Morphine Sulfate (Morphine Sulf Inj 10 Mg/Ml Vial) 2 mg IVP X1 ONE Stop: 08/10/24 11:00 Last Admin: 08/10/24 11:39 Dose: 2 mg Morphine Sulfate (Morphine Sulf Inj 10 Mg/Ml Vial) 2 mg IVP X1 ONE Stop: 08/10/24 18:13 Last Admin: 08/10/24 18:17 Dose: 2 mg Ondansetron HCl (Ondansetron Odt 4 Mg Tabrap) 4 mg PO X1 ONE; Protocol Stop: 08/10/24 06:50 Last Admin: 08/10/24 07:31 Dose: 4 mg Ondansetron HCl (Ondansetron Inj 2 Mg/Ml Inj 2 Ml) 4 mg IV X1 ONE; Protocol Stop: 08/10/24 20:32 Last Admin: 08/10/24 22:23 Dose: 4 mg Potassium Chloride (Potassium Chloride 20 Meq Tabcr) 40 meq PO X1 ONE Stop: 08/10/24 12:23 Last Admin: 08/10/24 14:00 Dose: 40 meq Scopolamine (Scopolamine 1 Mg Tdsy) 1 mg TOP X1 ONE Stop: 08/10/24 18:12 Last Admin: 08/10/24 18:18 Dose: 1 mg Assessment & Plan Plan Assessment and plan: Summary: Mr. Dutton is a 54-year-old male with past medical history of hyperlipidemia and depression who presented to [facility] emergency department on 08/10/2024 with a chief complaint of dizziness, nausea and unsteady gait. Patient admitted for CVA workup. #CVA workup #Dizziness, right ear pain Patient presented with chief complaint of dizziness, right ear pain, endorsed his symptoms started early this morning, denies any history of dizziness. Patient noted to have unsteady gait in ED, stroke alert called per neurologist evaluation NIHSS score 1, CT scanning of head in ED negative, CTA head and neck negative for large vessel occlusion. Patient's last known well time more than 4.5 hours. Patient was given loading dose aspirin in ED. Plan: -Started on aspirin 81 mg daily -Atorvastatin 40 mg daily -Consulted neurology, appreciate recommendations -Ordered MR stroke protocol -Ordered echo with bubble study -Elevate head of bed, keep patient euthermic, euglycemic -N.p.o., aspiration precaution, bedside swallow screen -Neurocheck every 4 hours, permissive hypertension for 24 hours -Referral to physical therapy -Referral to speech therapy -Will consider meclizine for dizziness as needed #Nausea, vomiting Patient complained of abdominal pain, pressure-like, intermittent lasting for 2 to 3 minutes with 9 out of 10 intensity. Attributes his nausea and vomiting to his dizziness. Patient was given Zofran 4 mg x 2 in ED, Reglan 5 mg x 1, Reglan 10 mg x 1, scopolamine patch, morphine 2 mg x 3, Maalox x 1, lidocaine p.o. x [address] abdomen pelvis shows mild nonspecific colitis, moderate prostatomegaly and mild cystitis Plan: ? Continue scopolamine patch ? IV Protonix ? Will consider Zofran/Reglan as needed ? Will consider Ativan as needed ? Will continue IV maintenance fluids ? Will monitor electrolytes in a.m. #Hyperbilirubinemia, #Transaminitis Patient has elevated bilirubin 1.5, AST 38 on presentation Gallbladder ultrasound in ED shows normal gallbladder fatty liver, chest x-ray shows no active disease, CT abdomen pelvis shows mild nonspecific colitis, moderate prostatomegaly and mild cystitis Plan: ? Monitor CMP in a.m. #Electrolyte imbalance #Hypokalemia ? Will correct and replace electrolytes as needed DVT prophylaxis: Heparin every 12 hours GI prophylaxis: IV Protonix Diet: N.p.o., pending nurse swallow screen Lines: Peripheral IV Code status: Full code Case discussed with Attending Dr. Richardson. Jens Carmichael PGY1 Internal medicine Disclaimer: This note was dictated by speech recognition. Minor errors in cloth inspector may be present due to voice recognition software. Attending Provider Attestation/Addendum 59-year-old male patient who is being admitted for CVA workup. He presented with dizziness, nausea, abdominal discomfort. Patient has hyperbilirubinemia, transaminitis and hypokalemia. Patient admitted for further evaluation. Follow stroke workup, follow lab results.
[2024-08-11] VITALS (12 sets, daily range): BP systolic 99–136; BP diastolic 61–80; PULSE 58–74; RESP 14–18; TEMP 36.1–36.7; O2SAT 92–100; BMI 30.6
--- NOTE | 2024-08-11 | XR_ITS ---
Examinations: MRI Brain without intravenous contrast. MRA brain without intravenous contrast. MRA carotids without intravenous contrast 3-D vascular reconstructions Date and time of exam: August 11, 2024 1117 hours INDICATIONS: Unsteady gait beginning this morning dizziness nausea Technique: Multiple axial and sagittal images of the brain have been obtained MRA brain carotid images without contrast obtained, including 3-D postprocessing, vascular maximum intensity projection images Findings: Sellaturcica is not enlarged. The optic chiasm and infundibular stalk are not remarkable. Prepontine and interpeduncular cisterns are not enlarged. No localized enlargement of the medulla or annemarie. Fourth ventricle and cerebellar tonsils normal in position. Subacute hemorrhage is not seen. Fourth ventricle is midline. Mass in the cerebellopontine angle region is not evident. 7th and 8th nerve complexes exhibits symmetry. Globes are symmetrical with no retro-orbital mass. Increased white matter signal evident scattered punctate foci increased signal in the cerebral white matter Diffusion-weighted images demonstrate no focus of restricted diffusion Mass-effect upon the ventricular system is not identified. MRA carotid images no significant carotid stenoses. MRA brain images no large vessel occlusions Impression: Negative for acute hemorrhage mass effect or midline shift No acute infarct Scattered punctate foci increased signal in the cerebral white matter, demyelinating disease
[2024-08-11] MEDS: SODIUM CHLORIDE 0.9% 1000 ML 1,000 ML 75 ML IV (02:20)
--- NOTE | 2024-08-11 02:20 | PC.NURSE ---
Clarified IVF with Dr. Carmichael, cont IV NS at 75cc/hr.
[2024-08-11 04:41] LABS: Basophils % (Auto) 0 % (0-2.5); Eosinophils % (Auto) 0 % (0-10); Hematocrit 37.1 % (41.0-53.0); Hemoglobin 13.8 g/dL (13.5-16.0); Immature Granulocytes % (Auto) 0 % (0-0); Immature Granulocytes Auto 0.03 Thou/mm3 (0.00-0.00); Lymphocytes # (Auto) 1.7 Thou/mm3 (1.0-4.8); Lymphocytes % (Auto) 15 % (10-50); Mean Corpuscular HGB Conc 37.2 g/dl (31.0-37.0); Mean Corpuscular Hemoglobin 31.4 pg (25.0-35.0); Mean Corpuscular Volume 85 fL (80-100); Monocytes # (Auto) 0.7 Thou/mm3 (0.0-0.8); Monocytes % (Auto) 7 % (0-12); Neutrophils # (Auto) 8.7 Thou/mm3 (1.8-7.7); Neutrophils % (Auto) 78 % (37-80); Nucleated Red Blood Cell % 0 /100 WBC (0); Platelet Count 238 Thou/mm3 (140-440); RDW Standard Deviation 38.8 fL (35.1-43.9); Red Blood Count 4.39 Miln/mm3 (4.50-5.90); White Blood Count 11.1 Thou/mm3 (3.8-10.6)
[2024-08-11 04:52] LABS: Glucose Estimated Average 100 mg/dL (80-131); Hemoglobin A1C 5.1 % Hgb (4.8-6.0)
[2024-08-11 04:57] LABS: INR 1.1 (0.9-1.3); Partial Thromboplastin Time 26.5 Seconds (22.0-36.0)
[2024-08-11 05:21] LABS: Alanine Aminotransferase 31 U/L (10-49); Albumin, Serum 4.2 gm/dL (3.5-5.0); Albumin/Globulin Ratio 1.7 (1.2-2.2); Alkaline Phosphatase 76 U/L (46-116); Anion Gap 6 (7-16); Aspartate Amino Transferase 26 U/L (0-34); BUN/Creatinine Ratio 13 Ratio (12-20); Bilirubin,Total 1.7 mg/dL (0.3-1.2); Blood Urea Nitrogen 10 mg/dL (9-23); Carbon Dioxide 26.8 mMol/L (20.0-31.0); Cardiac Risk Estimate 3.2 RATIO (4.0-6.7); Chloride 106 mMol/L (98-107); Cholesterol 129 mg/dL (132-200); Creatinine (Component) 0.8 mg/dL (0.6-1.3); Free T4 (Free Thyroxine) 1.19 ng/dL (0.89-1.76); Globulin 2.5 gm/dL (2.3-3.5); Glucose 116 mg/dL (74-106); HDL Cholesterol 40 mg/dL (40-60); LDL Cholesterol,Calculated 75 mg/dL (0-130); Magnesium 1.9 mg/dL (1.6-2.6); Osmolality,Calculated 277 (275-295); Phosphorous 4.2 mg/dL (2.4-5.1); Potassium 4.7 mMol/L (3.4-5.1); Sodium 139 mMol/L (136-145); Thyroid Stimulating Hormone 1.85 uIU/mL (0.55-4.78); Total Protein 6.7 gm/dL (5.7-8.2); Triglycerides 71 mg/dL (30-150); eGFR > 60 See Note
[2024-08-11] MEDS: ASPIRIN EC 81 MG TABEC PO (10:58)
[2024-08-11] MEDS: HEPARIN SOD INJ 5000 UNIT/ML VIAL SC ×2 (10:58→20:13)
[2024-08-11] MEDS: PANTOPRAZOLE INJ 40 MG VIAL IVP (10:58)
--- NOTE | 2024-08-11 13:28 | PC.SS ---
Addendum entered by Alejandra Leger 08/11/24 16:03: Follow up note: SS spoke to Pt who recommended o/p PT and a rollator walker for home due to vertigo. Original Note: Patient is Welsh speaking only. Stone Unloader line utilized. Patient's present at bedside. Patient states he resides with and their 5 children. Patient was admitted for CVA work up. Prior to hospitalization patient was independent with ADL's. No DME. Patient states she provided transportation assistance prior to hospitalization. [facility]. Last appointment was 1-2 weeks ago. Consult was placed for speech therapy and PT eval. Patient's alt medical decision maker is his , Cristy. Patient d/c plan is to return home. Pharmacy: [facility].
--- NOTE | 2024-08-11 13:51 | PD.ADDPROG ---
Addendum Progress Note Addendum Date of report being addended: 08/11/24 Narrative: Attending's attestation: I reviewed labs, imaging, EKG, home medications and prior available records. Face to face evaluation was performed by me. I have personally examined the patient and discussed assessment and plan with the IM team. I reviewed the resident note and agree with the plan with exceptions as below. Dizziness Ataxia Possible benign positional vertigo Possible CVA Started aspirin and atorvastatin Every 4 hour neurochecks Follow-up echocardiogram Follow-up brain MRI Meclizine as needed for vertigo If MRI is negative, benign positional vertigo versus orthostatic hypotension is likely diagnosis. Ordered orthostatic vital signs.
--- NOTE | 2024-08-11 14:34 | PD.RESPRO ---
Documentation for date of: 08/11/24 Subjective Subjective Interval history: Patient seen at bedside. No acute overnight events. He is a 54-year-old male with a past medical history of hyperlipidemia and depression who presented to the ED on 08/10/2024 with abdominal pain, dizziness and nausea. Supposedly, the patient's also reported right ear pain that started in early hours of yesterday, but currently denies ever having any pain in his ear. Blackburn-Hallpike and Kodi maneuver were done patient continues to have symptoms. Stroke alert was called in the ED patient was admitted for further workup. Head CT and CTA were done and is negative, neurology was consulted but patient was started on aspirin. At bedside today, patient still has some dizziness on examination, has nystagmus. Will continue stroke workup and follow neurology recommendations. Exam Vital Signs Temp Pulse Resp BP Pulse Ox O2 Del Method 97.0 F 65 15 119/78 92 L Room Air 08/11/24 12:00 08/11/24 12:00 08/11/24 12:08/11/24 12:00 08/11/24 12:08/11/24 05:00 Narrative Exam GENERAL: AAOX3 NEURO: FINANCIAL RECORDING CLERK grossly intact, moves extremities x4. Nystagmus seen on bilateral tracking, strength and sensation preserved. HEENT: Moist mucosa. Eyes open, symmetrical, & clear CARDIO: No chest pain on palpation. Heart RRR, no obvious murmurs PULM: No noted coughing/dyspnea. Lungs CTA B/L GI: Abdomen soft, nondistended, no pain on palpation. BSx4 URO/SUPERVISOR FORMING DEPARTMENT:: No further abnormalities noted. SKIN/MSK/EXT: No wounds/rashes/edema/amputations, no pain on palpation. Pedal pulses present B/L Objective Labs 08/12/24 05:31 08/12/24 05:31 Labs: Laboratory Results - last 24 hr 08/10/24 08/10/24 08/10/24 10:23 13:37 20:54 WBC RBC Hgb Hct MCV MCH MCHC RDW Std Deviation Plt Count Neut % (Auto) Lymph % (Auto) [place] % (Auto) Eos % (Auto) Baso % (Auto) Neut # (Auto) Lymph # (Auto) [place] # (Auto) Eos # (Auto) Baso # (Auto) Immature Gran # (Auto) Absolute Nucleated RBC Immature Gran % Nucleated RBC % PT 11.8 INR 1.1 APTT 26.1 Sodium Potassium Chloride Carbon Dioxide Anion Gap BUN Creatinine Estim Creat Clear Calc eGFR BUN/Creatinine Ratio Glucose Estimated Ave Glu mg/dL Hemoglobin A1c Calculated Osmolality Calcium Corrected Calcium Phosphorus Magnesium 1.8 Cancelled Total Bilirubin AST ALT Alkaline Phosphatase Total Protein Albumin Globulin Albumin/Globulin Ratio Triglycerides Cholesterol LDL Cholesterol, Calc HDL Cholesterol Cholesterol/HDL Ratio TSH Free T4 Ethyl Alcohol < 3.0 08/11/24 04:31 WBC 11.1 H RBC 4.39 L Hgb 13.8 Hct 37.1 L MCV 85 MCH 31.4 MCHC 37.2 H RDW Std Deviation 38.8 Plt Count 238 Neut % (Auto) 78 Lymph % (Auto) 15 [place] % (Auto) 7 Eos % (Auto) 0 Baso % (Auto) 0 Neut # (Auto) 8.7 H Lymph # (Auto) 1.7 [place] # (Auto) 0.7 Eos # (Auto) 0.0 Baso # (Auto) 0.0 Immature Gran # (Auto) 0.03 H Absolute Nucleated RBC 0.00 Immature Gran % 0 Nucleated RBC % 0 PT 12.0 INR 1.1 APTT 26.5 Sodium 139 Potassium 4.7 D Chloride 106 Carbon Dioxide 26.8 Anion Gap 6 L BUN 10 Creatinine 0.8 Estim Creat Clear Calc Not Performed. eGFR > 60 BUN/Creatinine Ratio [address] Glu mg/dL 100 Hemoglobin A1c 5.1 Calculated Osmolality 277 Calcium 9.0 Corrected Calcium 9.0 Phosphorus 4.2 Magnesium 1.9 Total Bilirubin 1.7 H AST 26 ALT 31 Alkaline Phosphatase 76 D Total Protein 6.7 Albumin 4.2 Globulin 2.5 Albumin/Globulin Ratio 1.7 Triglycerides 71 Cholesterol 129 L LDL Cholesterol, Calc 75 HDL Cholesterol 40 Cholesterol/HDL Ratio 3.2 L TSH 1.85 Free T4 1.19 Ethyl Alcohol Quality Measures Quality Measures none Assessment & Plan Assessment Current Active Medications: Generic Name Dose Route Start Last Admin Trade Name Freq PRN Reason Stop Dose Admin Acetaminophen 650 mg 08/10/24 22:26 Acetaminophen 325 Mg Tablet PO 09/09/24 22:25 Q6H PRN Mild Pain (1-3 & Fever >101.5 Al Hydrox/Mg Hydrox/Simethicone 30 ml 08/10/24 22:26 Mg Hyd/Al Hyd/Gilma (Maalox Reg) Susp 30 Ml Udc PO 09/09/24 22:25 Q6H PRN Indigestion Aspirin 81 mg 08/11/24 09:00 08/11/24 10:58 Aspirin Ec 81 Mg Tabec PO 09/10/24 08:59 81 mg QDAY LINDSAY Administration Atorvastatin Calcium 40 mg 08/11/24 21:00 Atorvastatin Calcium 20 Mg Tablet PO 09/10/24 20:59 HS LINDSAY Heparin Sodium (Porcine) 5,000 unit 08/11/24 09:00 08/11/24 10:58 Heparin Sod Inj 5000 Unit/Ml Vial SC 08/25/24 08:59 5,000 unit Q12H LINDSAY Administration Sodium Chloride 1,000 mls @ 75 mls/hr 08/11/24 02:20 08/11/24 13:42 Ns IV 09/10/24 02:19 Not Given Q10H LINDSAY Pantoprazole Sodium 40 mg 08/11/24 09:00 08/11/24 10:58 Pantoprazole Inj 40 Mg Vial IVP 09/10/24 08:59 40 mg QDAY LINDSAY Administration Sennosides 1 tab 08/10/24 22:26 Senna Tablet PO 09/09/24 22:25 QDAY PRN constipation Protocol Plan Summary: The patient is a 54-year-old male with past medical history of hyperlipidemia and depression who presented to [facility] emergency department on 08/10/2024 with a chief complaint of dizziness, nausea and unsteady gait. Patient admitted for CVA workup. #CVA r/o vs TIA #Dizziness #Likely BPPV Patient presented with chief complaint of dizziness, right ear pain, endorsed his symptoms started early this morning, denies any history of dizziness. Patient noted to have unsteady gait in ED, stroke alert called per neurologist evaluation NIHSS score 1, CT scanning of head in ED negative, CTA head and neck negative for large vessel occlusion. Patient's last known well time more than 4.5 hours. Patient was given loading dose aspirin in ED. Plan: -Continue aspirin 81 mg daily -Continue Atorvastatin 40 mg daily -Pending MRI and echo with bubble study -Consulted neurology, appreciate recommendations #Nausea and vomiting- resolved Patient complained of abdominal pain, pressure-like, intermittent lasting for 2 to 3 minutes with 9 out of 10 intensity. Attributes his nausea and vomiting to his dizziness. Patient was given Zofran 4 mg x 2 in ED, Reglan 5 mg x 1, Reglan 10 mg x 1, scopolamine patch, morphine 2 mg x 3, Maalox x 1, lidocaine p.o. x [address] abdomen pelvis shows mild nonspecific colitis, moderate prostatomegaly and mild cystitis Plan: ? Zofran/Reglan as needed #Hyperbilirubinemia, #Transaminitis-resolved Patient has elevated bilirubin 1.5, AST 38 on presentation Gallbladder ultrasound in ED shows normal gallbladder fatty liver, chest x-ray shows no active disease, CT abdomen pelvis shows mild nonspecific colitis, moderate prostatomegaly and mild cystitis Plan: ? Monitor CMP in a.m. #Electrolyte imbalance #Hypokalemia-resolved ? Will correct and replace electrolytes as needed DVT prophylaxis: Heparin every 12 hours GI prophylaxis: IV Protonix Diet: Cardiac Lines: Peripheral IV Code status: Full code Case was discussed with Dr Batres PGY-2 and attending physician, Dr Tomi Saldivar MD PGY-1 Disclaimer: This note was dictated by speech recognition. Minor errors in patcher wood welder may be present due to voice recognition software. Attending Provider Attestation/Addendum I reviewed labs, imaging, EKG, home medications and prior available records. Face to face evaluation was performed by me. I have personally examined the patient and discussed assessment and plan with the IM team. I reviewed the resident note and agree with the plan with exceptions as below. See my addendum in a separate addendum note
--- NOTE | 2024-08-11 16:52 | PC.PT ---
Patient is safe to ambulate to the bathroom and in the halls while using a FWW and 1 staff assist 2/2 his dizziness.
[2024-08-11] MEDS: ATORVASTATIN CALCIUM 20 MG TABLET 40 MG PO (20:13)
[2024-08-11] MEDS: ACETAMINOPHEN 325 MG TABLET 650 MG PO (20:19)
--- NOTE | 2024-08-11 21:26 | ESPR_ITS ---
Documentation for date of: 08/11/24 Subjective Subjective Interval history: Patient was seen in telemetry today at the bedside. Continues to have dizziness/vertigo and nausea. But able to tolerate oral diet well so far denies any weakness or paresthesias Exam - Neurology Vital Signs Temp Pulse Resp BP Pulse Ox O2 Del Method 97.8 F 67 14 117/73 97 Room Air 08/11/24 20:00 08/11/24 20:30 08/11/24 20:00 08/11/24 20:30 08/11/24 20:00 08/11/24 20:00 Narrative Exam GENERAL APPEARANCE: Well hydrated, well-nourished in no acute distress. HEENT: Normocephalic, atraumatic, extraocular movements intact. Pupils: Equal reacting to light and accommodation, he does have horizontal nystagmus bilaterally, NECK: Supple, no JVD or bruits. CARDIOVASULAR: Heart: S1, S2 heard, regular without S3-S4 or murmur no rubs or gallops. LUNGS/CHEST: Clear to auscultation bilaterally. No rails, rhonchi, or wheezing. Normal inspection. ABDOMEN: Soft, nontender, with normal bowel sounds. No pulsatile masses. No rebound, rigidity, or guarding. Normal inspection and palpation. EXTREMITIES: Normal inspection and palpation. No edema, clubbing or cyanosis. SKIN: Warm and dry without rashes. Normal inspection. MUSCULOSKELETAL: No cervical, thoracic, lumbar or midline bony tenderness. Normal inspection. NEURO: Alert, awake and oriented x3. Cranial nerves: II through XII grossly intact. Speech and language: Normal with no dysarthria or dysphasia. Motor system: Tone and bulk: Normal: Strength: 5 out of 5 in all 4 extremities; No pronator drift noted. Deep tendon reflexes: 2+ bilaterally symmetrical. Plantar reflex: Downgoing bilaterally. Sensory system: Intact to all modalities of sensation bilaterally. Coordination: Intact to ywjmep-ojwk-glnna and emzu-jsam-[id number] test bilaterally. No ataxia, no dysmetria, or dysdiadochokinesia noted. No intention tremors noted. Gait: Not tested. No signs of meningeal irritation noted. PSYCHIATRIC: Normal mood and affect. Objective Labs 08/11/24 04:31 08/11/24 04:31 Labs: Laboratory Results - last 24 hr 08/11/24 04:31 WBC 11.1 H RBC 4.39 L Hgb 13.8 Hct 37.1 L MCV 85 MCH 31.4 MCHC 37.2 H RDW Std Deviation 38.8 Plt Count 238 Neut % (Auto) 78 Lymph % (Auto) 15 Mcculloch % (Auto) 7 Eos % (Auto) 0 Baso % (Auto) 0 Neut # (Auto) 8.7 H Lymph # (Auto) 1.7 [place]ulloch # (Auto) 0.7 Eos # (Auto) 0.0 Baso # (Auto) 0.0 Immature Gran # (Auto) 0.03 H Absolute Nucleated RBC 0.00 Immature Gran % 0 Nucleated RBC % 0 PT 12.0 INR 1.1 APTT 26.5 Sodium 139 Potassium 4.7 D Chloride 106 Carbon Dioxide 26.8 Anion Gap 6 L BUN 10 Creatinine 0.8 Estim Creat Clear Calc Not Performed. eGFR > 60 BUN/Creatinine Ratio 13 [address]ucose [address] Glu mg/dL 100 Hemoglobin A1c 5.1 Calculated Osmolality 277 Calcium 9.0 Corrected Calcium 9.0 Phosphorus 4.2 Magnesium 1.9 Total Bilirubin 1.7 H AST 26 ALT 31 Alkaline Phosphatase 76 D Total Protein 6.7 Albumin 4.2 Globulin 2.5 Albumin/Globulin Ratio 1.7 Triglycerides 71 Cholesterol 129 L LDL Cholesterol, Calc 75 HDL Cholesterol 40 Cholesterol/HDL Ratio 3.2 L TSH 1.85 Free T4 1.19 Assessment & Plan Assessment and plan (1) Stroke-like symptoms: Status: Acute Assessment and plan: Reassurance with the patient that the MRI brain is negative for acute stroke, showed nonspecific white matter changes consistent with a small vessel disease. Continue vascular risk factors controlled and aspirin (2) Benign paroxysmal positional vertigo: Status: Acute Assessment and plan: He would benefit from positional exercises upon referral to physical therapy as an outpatient and avoid sudden changes in positioning, meclizine as needed
[2024-08-11] MEDS: MECLIZINE HCL 25 MG TABLET PO (21:49)
--- NOTE | 2024-08-11 22:28 | ECHO_ITS ---
Transthoracic Echo Report Ht (in): 65 Wt (lb): 184 Exam Location: Echo Lab Status: Inpatient Rotary Dryer Operator: MARILYN Rodriguez Indications: Procedure Performed: BP: 118 / 78 HR: 75 Rhythm: Sinus Technical Quality: Good MEASUREMENTS (Male / Female) Normal Values 2D ECHO LA Systolic Diameter LX 3.4 cm 3.0 - 4.0 / 2.7 - 3.8 cm LV Ejection Fraction MOD BP 68.6 % >= 55 % LV Cardiac Index MOD BP 2185.9 cm?/min?m? LV Ejection Fraction MOD 4C 62.6 % LV Cardiac Index MOD 4C 1977.9 cm?/min?m? LV Ejection Fraction MOD 2C 70.8 % LV Cardiac Index MOD 2C 1970.4 cm?/min?m? LV Ejection Fraction 2C AL 70.5 % LV Cardiac Index 2C AL 1966.6 cm?/min?m? DOPPLER AV Peak Velocity 171.0 cm/s AV Peak Gradient 11.7 mmHg AV Mean Gradient 6.6 mmHg AV Velocity Time Integral 38.9 cm AI Pressure Half Time 658.0 ms LVOT Peak Gradient 5.0 mmHg LVOT Velocity Time Integral 27.2 cm TR Peak Velocity 243.5 cm/s TR Peak Gradient 23.7 mmHg PV Peak Gradient 5.9 mmHg FINDINGS Left Ventricle Normal left ventricular size, wall thickness, systolic function with no obvious regional wall motion abnormalities. . The ejection fraction is visually estimated at 63 %. There is grade I diastolic dysfunction of the left ventricle (impaired relaxation pattern). Right Ventricle The right ventricle is normal in size and systolic function. The estimated right ventricular systolic pressure, 37 mmHg. Left Atrium The left atrium is normal by two-dimensional, color flow and Doppler imaging with no structural abnormalities, no thrombus formation present. Right Atrium The right atrium is normal by two-dimensional imaging, color flow and Doppler imaging with no structural abnormalities, no thrombus formation present. Atrial Septum The interatrial septum is normal to color flow Doppler and agitated saline imaging. Aorta The aorta is normal by two-dimensional, color flow and Doppler interrogation. Mitral Valve Mild mitral regurgitation. Mitral annular calcification. Aortic Valve Trace to mild aortic valve regurgitation. Tricuspid Valve There is mild tricuspid valve regurgitation. Pulmonic Valve The pulmonic valve is not well visualized. There is no significant pulmonic valve regurgitation. Vessels The pulmonary artery appears normal. The inferior vena cava pulmonary and hepatic veins appear normal. Pericardium The pericardium is normal by two-dimensional imaging. There is no significant pericardial effusion. CONCLUSIONS indication: Stroke, Bubble study LV appears normal in size with EF of 63%. Diastolic Dysfunction I RV appears normal with estimated RVSP of 37 mmHg The IAS is normal to color flow Doppler and agitated saline imaging. Negative Bubble tudy Trace mitral and trace tricuspid regurgitation Sienna Alejandro (Electronically Signed) Final Date: 11 August 2024 17:16
[2024-08-12] VITALS: BP 109/68; PULSE 62; PULSE 71; RESP 15; TEMP 36.7; O2SAT 96
[2024-08-12 04:00] VITALS: BP 102/66; PULSE 60; PULSE 70; RESP 25; TEMP 36.5; O2SAT 97
[2024-08-12 05:37] VITALS: BMI 30.8
[2024-08-12 06:02] LABS: Basophils % (Auto) 1 % (0-2.5); Eosinophils # (Auto) 0.1 Thou/mm3 (0.0-0.5); Eosinophils % (Auto) 1 % (0-10); Hemoglobin 14.1 g/dL (13.5-16.0); Immature Granulocytes % (Auto) 0 % (0-0); Immature Granulocytes Auto 0.02 Thou/mm3 (0.00-0.00); Lymphocytes % (Auto) 35 % (10-50); Mean Corpuscular HGB Conc 37.1 g/dl (31.0-37.0); Mean Corpuscular Volume 86 fL (80-100); Monocytes # (Auto) 0.6 Thou/mm3 (0.0-0.8); Monocytes % (Auto) 7 % (0-12); Neutrophils # (Auto) 4.9 Thou/mm3 (1.8-7.7); Neutrophils % (Auto) 57 % (37-80); Nucleated Red Blood Cell % 0 /100 WBC (0); Platelet Count 221 Thou/mm3 (140-440); RDW Standard Deviation 40.6 fL (35.1-43.9); Red Blood Count 4.41 Miln/mm3 (4.50-5.90); White Blood Count 8.5 Thou/mm3 (3.8-10.6)
[2024-08-12 06:20] LABS: Alanine Aminotransferase 33 U/L (10-49); Albumin, Serum 3.9 gm/dL (3.5-5.0); Albumin/Globulin Ratio 1.6 (1.2-2.2); Alkaline Phosphatase 73 U/L (46-116); Anion Gap 7 (7-16); Aspartate Amino Transferase 26 U/L (0-34); BUN/Creatinine Ratio 15 Ratio (12-20); Bilirubin,Total 1.3 mg/dL (0.3-1.2); Blood Urea Nitrogen 15 mg/dL (9-23); Calcium 9.1 mg/dL (8.3-10.6); Calcium (Corrected) 9.2 mg/dL (8.5-10.1); Carbon Dioxide 27.1 mMol/L (20.0-31.0); Chloride 108 mMol/L (98-107); Estimated Creatinine Clearance 85.2 mL/min (>60); Globulin 2.5 gm/dL (2.3-3.5); Glucose 100 mg/dL (74-106); Magnesium 1.9 mg/dL (1.6-2.6); Osmolality,Calculated 283 (275-295); Phosphorous 2.5 mg/dL (2.4-5.1); Potassium 4.2 mMol/L (3.4-5.1); Sodium 142 mMol/L (136-145); Total Protein 6.4 gm/dL (5.7-8.2); eGFR > 60 See Note
[2024-08-12 08:00] VITALS: BP 114/66; PULSE 72; PULSE 77; RESP 14; TEMP 36.7; O2SAT 96
[2024-08-12] MEDS: ASPIRIN EC 81 MG TABEC PO (08:43)
[2024-08-12] MEDS: HEPARIN SOD INJ 5000 UNIT/ML VIAL SC (08:43)
[2024-08-12] MEDS: PANTOPRAZOLE INJ 40 MG VIAL IVP (08:43)
--- NOTE | 2024-08-12 11:03 | PC.SS ---
Patient needs a FWW for home. The diagnosis creates mobility limitation that significantly impairs ability to participate in the patients activities of daily living either in their entirety, or in a reasonable time frame. Also the patient is able to safely use the walker and the patient?s mobility is sufficiently resolved with the use of the walker and cane has been ruled out.
[2024-08-12 11:17] VITALS: PULSE 62; RESP 18; RESP 95
[2024-08-12 12:00] VITALS: BP 117/72; PULSE 63; RESP 13; TEMP 36.6; O2SAT 99
--- NOTE | 2024-08-12 12:25 | ESDS_ITS ---
Planned Discharge Date 08/12/24 DS: Providers Provider Date of admission: 08/10/24 22:25 Primary care physician: Physician No Primary/Family Admitting Provider: Mark Richardson MD Attending Provider on Admission: Adan Krishna MD Consults: 08/10/24 20:44 Consult to Neurology / Tele-Neurology Routine Comment: Consulting Provider: [facility] 08/10/24 22:29 Consult to Neurology / Tele-Neurology Routine Comment: CVA Workup Consulting Provider: Philipp Fischer Referral Physical Therapy Routine Comment: Physician Instructions: Referral Speech Therapy Routine Comment: 08/11/24 06:45 Health [facility] Referral - Nutrition Routine Comment: Positive screening for nutrition needs. [facility] Referral - Utilities Routine Comment: Positive screening for utility assistance needs. Attending Provider on DC: Israel Saldivar MD Discharging Provider: Israel Saldivar MD DS: Diagnosis Problem List Completed Was Problem List Reviewed/Reconciled?: Yes Hospital Course Hospital Course Hospital course: The patient is a 54-year-old male with a past medical history of hyperlipidemia and depression who presented to the ED on 08/10/2024 with abdominal pain, dizziness and nausea. Supposedly, the patient also reported right ear pain that started in early hours of the day prior, but currently denies ever having any pain in his ear. [place]-Hallpike and Kodi maneuver were done patient continues to have symptoms. Stroke alert was called in the ED patient was admitted for further workup. Head CT and CTA were done and is negative, neurology was consulted but patient was started on aspirin. An echocardiogram with bubble study was done which was negative and MRI showed demyelinating/chronic microvascular changes but was negative for acute hemorrhage or infarct. Neurology evaluated the patient and he was reassured of the benign nature of this imaging and association of symptoms with benign paroxysmal positional vertigo. The patient continues to have occasional dizziness and has been started on meclizine as needed. Today, he is clinically and hemodynamically stable and medically cleared for discharge. He will continue to take aspirin 81 mg daily and added pantoprazole for abdominal pain, likely gastritis. He is recommended to follow-up with his PCP within 1 week of discharge as well as for an ENT referral, he is also recommended to continue outpatient physical therapy for positional exercises to help with BPPV. #Benign paroxysmal positional vertigo #Stroke ruled out #Possible gastritis Discharge instructions: Follow up with your PCP within one week of discharge You will need an ENT referral from your PCP for further evaluation You will need outpatient physiotherapy for positional exercises that help with dizziness Take pantoprazole 40mg daily for two weeks Take meclizine as needed for dizziness Continue Aspirin 81mg daily Ensure to stay hydrated Return to the ED if your symptoms worsen Case was discussed with Dr Batres PGY-2 and attending physician, Dr Beata Saldivar MD PGY-1 Disclaimer: This note was dictated by speech recognition. Minor errors in foreclosure clerk may be present due to voice recognition software. Time Spent with Patient Time attestation: Total time spent providing and/or coordinating discharge services: Exam Vital Signs Temp Pulse Resp BP Pulse Ox O2 Del Method 98.0 F 62 18 114/66 96 Room Air 08/12/24 08:00 08/12/24 11:17 08/12/24 11:17 08/12/24 08:00 08/12/24 08:00 08/12/24 08:00 Narrative Exam GENERAL: AAOX3 NEURO: SALES SUPPORT ADVISOR grossly intact, moves extremities x4. Nystagmus seen on bilateral tracking, strength and sensation preserved. HEENT: Moist mucosa. Eyes open, symmetrical, & clear CARDIO: No chest pain on palpation. Heart RRR, no obvious murmurs PULM: No noted coughing/dyspnea. Lungs CTA B/L GI: Abdomen soft, nondistended, mildly tender epigastrium on palpation. BSx4 URO/PATIENT FINANCIAL SPECIALIST:: No further abnormalities noted. SKIN/MSK/EXT: No wounds/rashes/edema/amputations, no pain on palpation. Pedal pulses present B/L Discharge Plan Plan Patient Disposition: HOME (Self Care) Care Plan Goals: Follow up with your PCP within one week of discharge You will need an ENT referral from your PCP for further evaluation You will need outpatient physiotherapy for positional exercises that help with dizziness Take pantoprazole 40mg daily for two weeks Take meclizine as needed for dizziness Continue Aspirin 81mg daily Ensure to stay hydrated Return to the ED if your symptoms worsen Moustapha un seguimiento con jin PCP dentro de leeroy semana del nataly Necesitar? leeroy derivaci?n otorrinolaringol?gica de jin PCP para leeroy evaluaci?n adicional. Necesitar? fisioterapia ambulatoria para ejercicios posicionales que ayuden con los mareos. [place] pantoprazol 40 mg al d?a lyndon dos semanas. [place] meclizina seg?n sea necesario para los mareos. Continuar con aspirina 81 mg al d?a. Aseg?rate de mantenerte hidratado. Regrese al servicio de urgencias si mayank s?ntomas empeoran. Prescriptions/Referrals Prescriptions/Med Rec: New pantoprazole 40 mg tablet,delayed release (DR/EC) 40 mg PO QDAY 14 Days Qty: 14 0RF atorvastatin 20 mg Tablet 40 mg PO HS 30 Days Qty: 60 0RF aspirin [Ecotrin Low Strength] 81 mg Tablet,Delayed Release (Dr/Ec) 81 mg PO QDAY 30 Days Qty: 30 0RF meclizine 25 mg Tablet 25 mg PO TID PRN (Reason: Vertigo) Qty: 30 0RF Discontinued atorvastatin 10 mg tablet 10 mg PO QPM calcium carbonate 390 mg calcium (1,000 mg) Tablet 1,000 mg PO DAILY No Action acetaminophen [Tylenol 8 Hour] 650 mg Tablet Extended Release 650 mg PO Q8HR PRN (Reason: Pain) vitamin E 400 unit Tablet 180 mg PO QDAY omega-3 fatty acids Capsule 1,000 mg PO QDAY Ardosons 1 tab PO QDAY Sleep & Stress Support 1 cap PO HS multivitamin with minerals Tablet 1 tab PO QDAY Referrals: No Primary/Family,Physician [Primary Care Provider] - Patient/Caregiver Discharge Instructions Other Discharge Activity Instructions:: Follow up with your PCP within one week of discharge You will need an ENT referral from your PCP for further evaluation You will need outpatient physiotherapy for positional exercises that help with dizziness Take pantoprazole 40mg daily for two weeks Take meclizine as needed for dizziness Continue Aspirin 81mg daily Ensure to stay hydrated Return to the ED if your symptoms worsen Education Materials: Anatomy of the Ear, ED BPV Vertigo Print Language: Occitan Stand Alone Forms: [place] Award Info., Patient Portal Info Letter Discharge Order Discharge Orders: Discharge (Routine); Ordered 08/12/24 Ordered By: Israel Saldivar Quality Discharge Quality Measures VTE prophylaxis
== END 2024-08-12 14:00 | disposition home or self-care (01) | DRG 111 ==
LOC: SERX 21:50 → SERHOLD 22:42 → S2NX 08-11 04:55
PROVIDERS: Emergency Medicine; Nurse Practitioner Family; Student in an Organized Health Care Education/Training Program; Admitting Provider Internal Medicine; Emergency Provider Emergency Medicine; Visit Provider Student in an Organized Health Care Education/Training Program
DX: H81.10 Benign paroxysmal vertigo, unspecified ear (principal); F32.A Depression, unspecified; E78.5 Hyperlipidemia, unspecified; H92.01 Otalgia, right ear; E87.6 Hypokalemia; K76.0 Fatty (change of) liver, not elsewhere classified; K29.70 Gastritis, unspecified, without bleeding; H55.00 Unspecified nystagmus; R27.0 Ataxia, unspecified; R20.1 Hypoesthesia of skin; N40.0 Benign prostatic hyperplasia without lower urinary tract symptoms; K25.9 Gastric ulcer, unspecified as acute or chronic, without hemorrhage or perforation; K52.9 Noninfective gastroenteritis and colitis, unspecified; N30.90 Cystitis, unspecified without hematuria; Z79.899 Other long term (current) drug therapy; Z79.82 Long term (current) use of aspirin; Z56.0 Unemployment, unspecified
CPT/HCPCS: 36415; 70450; 70496; 70498; 70544; 71045; 74177; 76705; 80053; 80061; 80320; 81001; 83036; 83605; 83690; 83735; 84100; 84439; 84443; 84484; 85025; 85610; 85730; 87086; 92610; 93306; 97162; A4649; J1643; J2270; J2405; J2470; J2765; J3490; J7030; J7120; Q0162; Q9967; A9270; G0480

== ENCOUNTER 2024-11-15 08:30 | Outpatient (RCR) | payer MEDICAID, SELFPAY ==
--- NOTE | 2024-11-07 15:15 | PTNOTE_ITS ---
PT OP Initial Eval Patient Information Outpatient Physical Therapy Treatment Date: 11/07/24 Visit Reasons: Vertigo Medical Diagnosis: R42 Treatment Dx #1: dizziness Start of Care: 11/07/24 Date of Onset: 08/10/24 Smoking Status Smoking Status: Never smoker Initial Assessment Subjective: Pt is 54 yr old serbian and mixteco speaking male reports onset of dizziness in July. Increased ssx with looking up and down. He isn't working due to this. 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 Assessment: Pt presents with negative [place]-Hallpike testing today but subjective history is consistent with BPPV. Pt requires skilled therapy and has good rehab potential to meet goals if in fact he has BPPV. 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 Ind with HEP 2. Reduced dizziness ssx by 75% with looking up and down 3. Pt will report 50% less onset of dizziness. Treatment Plan 1. Therex including Kodi maneuvers 2. Manual therapy 3. Modalities as indicated Frequency and Duration: 2x a week for 6 weeks plus the evaluation Certification Dates: 11/07/24 to 02/07/25 Procedure Charges OP PT Eval Mod Complex 30 minutes: Yes
--- NOTE | 2024-11-15 10:21 | PT.ODAYNRPT ---
PT Outpatient Daily Note OP Daily Note Outpatient Physical Therapy Treatment Date: 11/15/24 Visit Reasons: Vertigo Subjective: No increased dizziness with Kodi maneuver Objective: Kodi to L x3 Assessment: Dizziness ssx not provoked with Kodi Plan: Treat R ear Length of Time (minutes) of Treatment: 30 Minutes Procedure Charges Therapeutic Exercise 30 minutes: Yes
== END 2024-11-26 23:59 | disposition home or self-care (01) ==
LOC: CPTX 08:30
PROVIDERS: PCP Internal Medicine; Referring Provider Internal Medicine; Visit Provider Internal Medicine
DX: R42 Dizziness and giddiness (principal); I10 Essential (primary) hypertension
CPT/HCPCS: 97110; 97162

== ENCOUNTER 2024-12-07 16:30 | Outpatient (RCR) | payer MEDICAID, SELFPAY ==
--- NOTE | 2024-11-28 18:09 | PT.ODAYNRPT ---
PT Outpatient Daily Note OP Daily Note Outpatient Physical Therapy Treatment Date: 11/28/24 Visit Reasons: Vertigo Subjective: The dizziness feels about the same after last visit Objective: [place]odi to R x3 Assessment: Dizziness ssx provoked with [place]odi to the R today. Plan: Treat R ear Length of Time (minutes) of Treatment: 30 Minutes Procedure Charges Therapeutic Exercise 30 minutes: Yes
--- NOTE | 2024-12-07 16:23 | PT.ODAYNRPT ---
PT Outpatient Daily Note OP Daily Note Outpatient Physical Therapy Treatment Date: 12/07/24 Visit Reasons: Vertigo Subjective: The dizziness feels about the same after last visit Objective: Kodi to L x3 Assessment: No dizziness ssx provoked with [place]odi to the L today. Negative dizziness while walking and turning head side to side and up and down. Plan: Continue per POC Length of Time (minutes) of Treatment: 30 Minutes Procedure Charges Therapeutic Exercise 30 minutes: Yes
== END 2024-12-26 23:59 | disposition home or self-care (01) ==
LOC: CPTX 16:30
PROVIDERS: PCP Internal Medicine; Referring Provider Internal Medicine; Visit Provider Internal Medicine
DX: R42 Dizziness and giddiness (principal); I10 Essential (primary) hypertension
CPT/HCPCS: 97110

== ENCOUNTER 2025-01-09 16:30 | Outpatient (RCR) | payer MEDICAID, SELFPAY ==
--- NOTE | 2024-12-28 16:22 | PT.ODAYNRPT ---
PT Outpatient Daily Note OP Daily Note Outpatient Physical Therapy Treatment Date: 12/28/24 Visit Reasons: Vertigo Subjective: The day before yesterday he was dizzy Objective: Kodi to R x3 Assessment: No dizziness ssx provoked with [place]odi to the R today. Negative dizziness while walking and turning head side to side and up and down. Plan: Continue per POC Length of Time (minutes) of Treatment: 30 Minutes Procedure Charges Therapeutic Exercise 30 minutes: Yes
--- NOTE | 2025-01-03 18:05 | PT.ODAYNRPT ---
PT Outpatient Daily Note OP Daily Note Outpatient Physical Therapy Treatment Date: 01/03/25 Visit Reasons: Vertigo Subjective: He hasn't felt much relief since starting therapy from dizziness. He feels dizzy during Kodi maneuvers when he turns his head to the contralateral side in supine. Objective: Kodi to L x3 Assessment: Pt had dizziness ssx provoked with Kodi to the L today when he turned his head to the R. Plan: Pt will have a ear, nose, throat consultation and then make an appt to continue with therapy Length of Time (minutes) of Treatment: 30 Minutes Procedure Charges Therapeutic Exercise 30 minutes: Yes
== END 2025-01-26 23:59 | disposition home or self-care (01) ==
LOC: CPTX 16:30
PROVIDERS: PCP Internal Medicine; Referring Provider Internal Medicine; Visit Provider Internal Medicine
DX: R42 Dizziness and giddiness (principal); I10 Essential (primary) hypertension
CPT/HCPCS: 97110

== ENCOUNTER → 2025-01-23 | Outpatient (CLI) | payer MEDICAID, SELFPAY ==
--- NOTE | 2025-01-23 16:35 | XR_ITS ---
Examination: Lumbar spine 3 views Technique one AP lateral coned lateral lower lumbar spine 3 views Date and time: January 03, 2025 1642 hours INDICATIONS: Low back pain years. FINDINGS: Adequate alignment lumbar vertebral bodies No lumbar fracture Diffuse [id number] lumbar degenerative disc disease, most prominent L4-L5, L5-S1 Prominent lumbar spondylosis IMPRESSION: Diffuse lumbar degenerative disc disease, moderate at the L4-L5 L5-S1 levels
== END | disposition home or self-care (01) ==
LOC: CDIM 16:29
DX: M51.360 Other intervertebral disc degeneration, lumbar region with discogenic back pain only (principal); M51.370 Other intervertebral disc degeneration, lumbosacral region with discogenic back pain only
CPT/HCPCS: 72100

== ENCOUNTER → 2025-04-20 | Outpatient (CLI) | payer MEDICAID, SELFPAY ==
--- NOTE | 2025-04-20 16:15 | XR_ITS ---
Examination: MRI lumbar spine without contrast Date and time of exam: April 20, 2025, 1813 hours INDICATIONS: Lower back pain radiating down the right leg numbness and paresthesias in both legs 8 months Technique: Multiple MRI axial and sagittal sections lumbar spine. Sagittal T2-weighted images, TR 3500, TE 118 T1 weighted transverse sections, TR 688 T8.5, T2-weighted sagittal sections T1 weighted sagittal sections TR 621, TE 30 T2 axial sections, TR 4, 190, TE 84. Findings: Alignment lumbar vertebral bodies No lumbar fracture. Adequate marrow signal lumbar vertebral bodies. Diffuse lumbar disc desiccation. Diffuse mild to moderate lumbar disc narrowing No spondylolisthesis L5-S1 5 mm central lumbar disc bulge contiguous with both the right and left S1 nerve roots L4-L5 6 mm central lumbar disc bulge L3-L4 4 mm central lumbar disc bulge L2-L3 no disc protrusion L1-L2 no disc protrusion IMPRESSION: L5-S1 5 mm central and right disc bulge contiguous with both right and left S1 nerve roots L4-L5 6 mm central lumbar disc bulge indenting the ventral margin of thecal sac L3-L4 4 mm central lumbar disc bulge
== END | disposition home or self-care (01) ==
LOC: SMRI 16:45
DX: M51.362 Other intervertebral disc degeneration, lumbar region with discogenic back pain and lower extremity pain (principal); M51.370 Other intervertebral disc degeneration, lumbosacral region with discogenic back pain only
CPT/HCPCS: 72148

== ENCOUNTER 2025-05-17 07:38 | Emergency (ER) | payer MEDICAID, SELFPAY ==
--- NOTE | 2025-05-17 07:44 | EKG_ITS ---
[facility] Test Date: 2025-05-17 Pat Name: AVELINO CAAL Department: Room: - Gender: Male Wrecker Operator: : 1970 Requested By: Osmany Sanchez (LYNNE) Order Number: [id number] Reading MD: Osmany Sanchez (PHOTOGRAPHER NEWS) Measurements Intervals [place] Rate: 59 P: 53 SD: 140 QRS: 12 QRSD: 86 T: 24 QT: 386 QTc: 384 Interpretive Statements SINUS BRADYCARDIA No previous ECG available for comparison /[id number]/S0/[id number]
[2025-05-17 07:48] VITALS: BP 143/87; PULSE 54; RESP 18; TEMP 36.7; O2SAT 99; BMI 30.1
--- NOTE | 2025-05-17 07:59 | XR_ITS ---
Examination: CT brain head without contrast. 2-D sagittal coronal reconstructions Date and time of exam: May 17, 2025, 0820 hours INDICATIONS: Onset headache dizziness head pressure today COMPARISON: August 10, 2024 CTDI: vol (mGy): 48.4 DLP: (mGycm): 935 Technique: Multiple CT axial sections of the brain have been obtained, 5 mm slice thickness. Contrast has not been administered. 2-D sagittal, coronal reconstructions have been obtained Low dose protocols were performed. One or more of the following dose reduction techniques were used; automated exposure control, adjustment of the mA and/or KV according to patient size, use of iterative reconstruction technique. Findings: No significant ventricular enlargement. Intra-axial or extra-axial hemorrhage density is not seen. No mass effect or midline shift Basal cisterns are not remarkable. Fourth ventricle is midline. Cranial vault intact. Impression: Negative for acute hemorrhage, mass effect or midline shift Advise clinical correlation and follow-up accordingly
--- NOTE | 2025-05-17 07:59 | XR_ITS ---
EXAMINATION: PA lateral chest 2 views TECHNIQUE: Upright PA lateral chest 2 views Date and time: May 17, 2025, 0836 hours, comparison August 10, 2024 INDICATIONS: Mid chest pain today with high blood pressure 3 days FINDINGS: Normal heart size Lungs are clear. Osseous structures intact IMPRESSION: No active disease
[2025-05-17 09:11] LABS: Basophils # (Auto) 0.0 Thou/mm3 (0.0-0.2); Basophils % (Auto) 0 % (0-2.5); Eosinophils # (Auto) 0.0 Thou/mm3 (0.0-0.5); Eosinophils % (Auto) 0 % (0-10); Hematocrit 43.3 % (41.0-53.0); Hemoglobin 15.8 g/dL (13.5-16.0); Immature Granulocytes Auto 0.03 Thou/mm3 (0.00-0.00); Lymphocytes # (Auto) 1.9 Thou/mm3 (1.0-4.8); Lymphocytes % (Auto) 22 % (10-50); Mean Corpuscular HGB Conc 36.5 g/dl (31.0-37.0); Mean Corpuscular Hemoglobin 32.4 pg (25.0-35.0); Mean Corpuscular Volume 89 fL (80-100); Monocytes # (Auto) 0.6 Thou/mm3 (0.0-0.8); Monocytes % (Auto) 7 % (0-12); Neutrophils # (Auto) 6.0 Thou/mm3 (1.8-7.7); Neutrophils % (Auto) 70 % (37-80); Nucleated Red Blood Cell # 0.00 Thou/mm3 (0.00-0.00); Nucleated Red Blood Cell % 0 /100 WBC (0); Platelet Count 250 Thou/mm3 (140-440); RDW Standard Deviation 42.2 fL (35.1-43.9); Red Blood Count 4.87 Miln/mm3 (4.50-5.90); White Blood Count 8.5 Thou/mm3 (3.8-10.6)
[2025-05-17 09:35] LABS: Alanine Aminotransferase 19 U/L (10-49); Albumin, Serum 4.6 gm/dL (3.5-5.0); Albumin/Globulin Ratio 2.1 (1.2-2.2); Alkaline Phosphatase 89 U/L (46-116); Anion Gap 8 (7-16); Aspartate Amino Transferase 23 U/L (0-34); BUN/Creatinine Ratio 14 Ratio (12-20); Bilirubin,Total 1.1 mg/dL (0.3-1.2); Blood Urea Nitrogen 11 mg/dL (9-23); Calcium 8.8 mg/dL (8.3-10.6); Calcium (Corrected) 8.8 mg/dL (8.5-10.1); Carbon Dioxide 30.4 mMol/L (20.0-31.0); Chloride 104 mMol/L (98-107); Creatinine (Component) 0.8 mg/dL (0.6-1.3); Estimated Creatinine Clearance 104.1 mL/min (>60); Globulin 2.2 gm/dL (2.3-3.5); Glucose 102 mg/dL (74-106); Osmolality,Calculated 282 (275-295); Potassium 4.0 mMol/L (3.4-5.1); Sodium 142 mMol/L (136-145); Total Protein 6.8 gm/dL (5.7-8.2); Troponin I < 0.002 ng/mL (0.0-0.045); eGFR > 60 See Note
--- NOTE | 2025-05-17 10:42 | PD.EDHA ---
ED Headache RME/HPI General Chief Complaint: Chest Pain Stated Complaint: HIGH BP (153/94, CHEST PAIN, PORTER Time Seen by Provider: 05/17/25 07:59 Arrival date/time: 05/17/25 07:38 55-year-old male presents to the Emergency Department today for complaints of headache, chest pain, generalized bodyaches. Patient reports symptom onset 2 to 3 days ago Limitations: no limitations Related Data Home Medications ?Medication ?Instructions ?Recorded ?Confirmed Ardosons 1 tab PO QDAY 08/13/22 08/13/22 Held on 08/13/22. Instructions: Resume on 08/14/22. MAY RESUME IN 24 HOURS Sleep & Stress Support 1 cap PO HS 08/13/22 08/11/24 Held on 08/13/22. Instructions: Resume on 08/14/22. MAY RESUME IN 24 HOURS acetaminophen 650 mg 650 mg PO Q8HR PRN Pain 08/13/22 08/13/22 tablet,extended release (Tylenol 8 Hour) Held on 08/13/22. Instructions: Resume on 08/14/22. MAY RESUME IN 24 HOURS multivitamin with minerals 1 tab PO QDAY 08/13/22 08/11/24 omega-3 fatty acids 1,000 mg PO QDAY 08/13/22 08/13/22 vitamin E 400 unit tablet 180 mg PO QDAY 08/13/22 08/13/22 Previous Rx's ?Medication ?Instructions ?Recorded meclizine 25 mg tablet 25 mg PO TID PRN Vertigo #30 tabs 08/12/24 Allergies Allergy/AdvReac Type Severity Reaction Status Date / Time ibuprofen Allergy Mild Hives Verified 05/17/25 07:46 Review of Systems Review of Systems Systems Reviewed: All systems reviewed, normal except as documented Constitutional Constitutional: Reports system reviewed and no additional complaints, except as documented, Denies fever(s) and Reports headache(s) Eyes Eyes: Reports system reviewed and no additional complaints, except as documented and Denies blurry vision ENT Ears, Nose, Mouth, and Throat: Reports system reviewed and no additional complaints, except as documented, Reports headache(s), Denies nasal congestion and Denies nasal discharge Cardiovascular Cardiovascular: Reports system reviewed and no additional complaints, except as documented, Reports chest pain and Denies dyspnea Respiratory Respiratory: Reports system reviewed and no additional complaints, except as documented, Denies chest congestion, Denies cough and Denies dyspnea Gastrointestinal Gastrointestinal: Reports system reviewed and no additional complaints, except as documented and Denies abdominal pain Integumentary/Breasts Skin/Breast: Reports system reviewed and no additional complaints, except as documented and Denies rash Neurologic Neurologic: Reports system reviewed and no additional complaints, except as documented, Reports as per HPI and Reports headache(s) Past Medical History Past Medical History NEUROLOGIC: Negative Neurological Disorders or Seizures CARDIAC: Positive Hypercholesterolemia; Negative Cardiac Disorders or Congestive Heart Failure RESPIRATORY: Negative Chronic Obstructive Pulmonary Disease (COPD) or Asthma GASTROINTESTINAL: Negative Gastrointestinal Disorders GENITOURINARY: Negative Genitourinary Disorders or Renal Disease MUSCULOSKELETAL: Positive Musculoskeletal Disorders (KARI. 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) ENDOCRINE: Negative Endocrine Disorders, Diabetes Mellitus Type 1 or Diabetes Mellitus Type 2 HEMATOLOGIC: Negative Blood Disorders or Sickle Cell Disease PSYCHO/SOCIAL: Positive Anxiety OTHER HISTORY: Negative Autoimmune Disease, Blood Transfusions, Blood Transfusion Reaction, Anesthesia Reactions or Cancer Family History FAMILY HISTORY: Negative Family Cancer or Family Anesthesia Reaction Social History SMOKING STATUS: Never smoker SECOND HAND EXPOSURE: No ED Exam General Limitations: Present no limitations General appearance: Present alert and in no apparent distress Head Head exam: Present atraumatic, normocephalic and normal inspection Eye Eye exam: Present normal appearance, PERRL and EOMI; Absent conjunctival injection ENT ENT exam: Present normal exam, normal oropharynx and mucous membranes moist Neck Neck exam: Present normal inspection, full ROM and trachea midline; Absent tenderness, meningismus or lymphadenopathy Chest Chest inspection: Present normal inspection and symmetric chest wall rise Respiratory Respiratory exam: Present normal lung sounds bilaterally Cardiovascular Cardiovascular exam: Present regular rate, normal rhythm and normal heart sounds Abdominal Exam Abdominal exam: Present soft and normal bowel sounds Extremities Exam Extremities exam: Present normal inspection and full ROM Back Exam Back exam: Present normal inspection and full ROM Neurological Exam Neurological exam: Present alert, oriented X3, CN II-XII intact, normal gait and reflexes normal; Absent motor sensory deficit Psychiatric Psychiatric exam: Present normal affect and normal mood Skin Skin exam: Present warm, dry, intact and normal color Course Quality Measures none Orders Category Date Time Status EKG (ED ONLY) *Do not use* NOW Care 05/17/25 07:[address] head/brain wo con Stat Exams 05/17/25 07:59 Completed EKG (ED Only) Stat Exams 05/17/25 07:44 Draft XR chest 2V Stat Exams 05/17/25 07:59 Completed CBC Stat Lab 05/17/25 08:49 Completed Comprehensive Metabolic Panel Stat Lab 05/17/25 08:49 Completed Troponin I Stat Lab 05/17/25 08:49 Completed Vital Signs Vital signs: Vital Signs Temperature 98.0 F 05/17/25 07:48 Pulse Rate 54 L 05/17/25 07:48 Respiratory Rate 18 05/17/25 07:48 Blood Pressure 143/87 H 05/17/25 07:48 Pulse Oximetry (%) 99 05/17/25 07:48 Oxygen Delivery Method Room Air 05/17/25 07:48 O2 saturation 99% room air within normal limits PROCEDURES: EKG Interpretation #1: Date of EK05/17/25 Time of EK:53 Rate: 59 Interpretation: Interpreted by me EKG Impression: Normal sinus rhythm (Sinus bradycardia), No acute ST-T changes, No ectopy, No ischemic changes, Normal QRS, Normal intervals and Normal axis Headache MDM Narrative MDM Narrative:: 55-year-old male presents to the Emergency Department today for complaints of headache, chest pain, generalized bodyaches. Patient reports symptom onset 2 to 3 days ago On exam patient well-appearing does not appear ill or toxic no distress Imaging obtained no acute emergent findings noted EKG obtained no acute emergent findings noted Lab work obtained no acute emergent findings noted no leukocytosis troponin is negative Patient discharged home in no distress to follow-up with primary care doctor in the next 24 to 48 hours and for any worsening symptoms to return to the ER immediately Patient data External records reviewed:: [facility] previous records Clinical information provided by:: patient Social determinants that could affect healthcare access:: none Patient has the following chronic illnesses:: See history How is presenting disease/condition affected by chronic disease/condition?: uneffected by Evaluation data The following diagnostics were reviewed and interpreted by me:: lab results, radiology exam(s) and EKG tracing(s) Lab and/or radiology exams considered but not ordered:: Labs, radiology, EKG obtained Interpretation Summary: Reviewed by me Medications / Prescriptions Medications or Prescriptions considered but not ordered:: Given Medication administrations:: Given Consultations Consultation(s) initiated? (list below): No Diagnosis Differential diagnosis headache: migraine, tension headache, subarachnoid hemorrhage and other (Anxiety about health, chest pain, atypical chest pain) Most likely diagnosis given after review of the tests above:: Chest pain, headache Admission Indicated Admission indicated?: not indicated Admission Request Was there a request for admission?: No Disposition Plan Disposition Plan: Discharge Discharge Attestation Discharge Attestation: The patient and all family members were given an opportunity to ask questions and understood the discharge instructions. Discharge instructions specifically effects, indications for sooner follow up or return to the emergency department, and the expected course of current diagnosis. Patient condition: Stable Discharge Plan Plan Patient Disposition: HOME (Self Care) Discharge Disposition comment: Stable Prescriptions/Referrals Prescriptions/Med Rec: No Action meclizine 25 mg Tablet 25 mg PO TID PRN (Reason: Vertigo) Qty: 30 0RF acetaminophen [Tylenol 8 Hour] 650 mg Tablet Extended Release 650 mg PO Q8HR PRN (Reason: Pain) vitamin E 400 unit Tablet 180 mg PO QDAY omega-3 fatty acids Capsule 1,000 mg PO QDAY Ardosons 1 tab PO QDAY Sleep & Stress Support 1 cap PO HS multivitamin with minerals Tablet 1 tab PO QDAY Referrals: Kayla De La Rosa MD [Primary Care Provider] - In 1 week Problem List Clinical Impression: Headache, Chest pain Patient/Caregiver Discharge Instructions Education Materials: Measuring Your Pain Additional Instructions: Please follow up with your primary care doctor in the next 24-48hrs for any worsening symptoms return here immediately Print Language: Peruvian Stand Alone Forms: [facility] Award Info., Patient Portal Info Letter PA/POLYTECHNIC REGISTRAR Supervising Physician PA/POLYTECHNIC REGISTRAR Supervising Physician: Dr. Ty
== END 2025-05-17 11:48 | disposition home or self-care (01) ==
PROVIDERS: Nurse Practitioner Primary Care; Emergency Provider Family Medicine; PCP Internal Medicine
DX: R51.9 Headache, unspecified (principal); R07.9 Chest pain, unspecified
CPT/HCPCS: 36415; 70450; 71046; 80053; 84484; 85025; 93005; 99283